=== PATIENT | female | born 1950 | race Caucasian/White ===

== ENCOUNTER 2016-12-04 18:59 | Observation (INO) | payer OTHER, MEDICAID ==
[2016-12-04] MEDS ORDERED: NS 1000 ML 1,000 ML IV ONE (19:28)
[2016-12-04] MEDS ORDERED: ZOFRAN INJ 4 MG VIAL IVP ONE (19:30)
[2016-12-04] MEDS ORDERED: NS 1000 ML 1,000 ML ONE (19:31)
--- NOTE | 2016-12-04 19:35 | DR.GENAD ---
HPI - PCP Primary Care Physician: CALDERON - Complaint/Symptoms Chief Complaint Doctors Comments: Patient complains of vomited black secretions x2 at home with generalized weakness, tired in bed all day. states she has a history of GI bleed and was getting transfusions every 3-4 months. states she was scoped by Dr. Wolff and told she have a AVM like area. she denies tobacco or alcohol usage. States the pain is 8 of 10. She denies wendy or hematuria today. She has had a productive cough for a few days. States she had episode in which she could not stop shaking and her daughter had to cover her with four blankets. Chief Complaint:: VOMITING WEAK - Nurses notes reviewed Nurses Notes Review: Yes - Source History Provided: Patient - Mode of Arrival Mode of Arrival: Ambulatory - Timing Onset of Chief Complaint: 12/04/16 Came on: Gradually - Duration Duration: Intermittent How lon Duration: Days - Location Location: vomiting with abdominal pain - Severity Severity: Moderate - Modifying Factors Worsens:: nothing Improves:: nothing PMH - PMH Past Medical History: Yes Past Medical History: Anemia, Anxiety, Depression, GERD, Hypertension, Kidney Stones, PUD Past Medical History Comment: HIATAL HERNIA Past Surgical History: Yes Surgical History: Cholecystectomy, Hysterectomy, Ortho Surgery Past Surgical History Comment: LUMPECTOMY, SPURS REMOVED FROM FEET - Family History History of Family Medical Conditions: Yes Family Medical History: Cancer, Hypertension - Social History Does patient currently use any type of tobacco product: No Have you used tobacco products in the last 12 months: No Type of Tobacco Use: None Does any household member use tobacco: No Alcohol Use: None Do you use any recreational Drugs:: No Lives With: Family Lives Where: Home - infectious screening In the last 2 months have you had wt loss of >10#?: NO Have you had fever, night sweats or hemotysis?: No Have you traveled outside the country in the last 6 months?: No Isolation: Standard ROS - Review of Systems Constitutional: No Symptoms Reported, Fever, Malaise, Weakness, Loss of Appetite. negative: See HPI, Chills, Diaphoresis, Irritable, Fatigue, Other Eyes: No Symptoms Reported, Blurred Vision, Discharge ENTM: No Symptoms Reported. negative: See HPI, Ear Pain, Ear Discharge, Pulling on Ears, Hearing Loss, Nose Pain, Nose Discharge, Epistaxis, Nose Congestion, Mouth Pain, Mouth Swelling, Loose Teeth, Drooling, Throat Pain, Throat Swelling, Ear Foreign Body Respiratoy: Non-Productive Cough, Dry Cough Cardiovascular: No Symptoms Reported. negative: See HPI, Chest Pain, Edema, Palpitations, Syncope, Cyanosis, Skin Mottling, Other Gastrointestinal/Abdominal: No Symptoms Reported, Abdominal Pain, Nausea. negative: See HPI, Constipation, Diarrhea, Vomiting, Food Intolerance, Other Genitourinary: No Symptoms Reported. negative: See HPI, Discharge, Dysuria, Frequency, Hematuria, Pain, Bleeding, Other Neurological: No Symptoms Reported, Weakness. negative: See HPI, Anxiety, Depressed, Emotional Problems, Headache, Numbness, Paresthesia, Pre-existing Deficit, Seizure, Tingling, Tremors, Dizziness, Problems Walking, Speech Problem , Other Musculoskeletal: No Symptoms Reported Integumentary: No Symptoms Reported Hematologic/Lymphatic: No Symptoms Reported Endocrine: No Symptoms Reported Psychiatric: No Symptoms Reported PE - Vital Signs Vitals: Temperature 99.3 F Pulse Rate 109 Respiratory Rate 16 Blood Pressure [Right Arm] 145/61 Blood Pressure [Right Radial 147/79 Artery] Blood Pressure [Left Arm] 137/67 Blood Pressure [Standing] 128/59 Blood Pressure [Lying] 141/71 Blood Pressure 140/65 O2 Sat by Pulse Oximetry 97 - General Limitations: No Limitations General Appearance: Alert, In Distress (mild) - Head Head Exam: Normal Inspection, Atraumatic, Normocephalic - Eyes Eye exam: Normal Appearance, PERRL, EOMI. negative: Scleral Icterus, Conjunctival Injection, Nystagmus, Miosis, Mydrasis, Periorbital Swelling, Periorbital Tenderness, Other - ENT ENT Exam: Normal Exam External Ear Exam: Normal External Inspection TM/Canal Exam: Bilateral Normal Nose Exam: Normal Nose Exam, Sinus Tenderness Mouth Exam: Normal Inspection Throat Exam: Normal Inspection. negative: Tonsillar Erythema, Tonsillomegaly, Tonsillar Exudate, R Peritonsillar Mass, L Peritonsillar Mass, Muffled Voice, Other - Neck Neck Exam: Normal Inspection, Full ROM, Trachea Midline. negative: Tenderness, Meningismus, Lymphadenopathy, Thyromegaly, Other - Chest Chest Inspection: Normal Inspection, Symmetric Chest Wall Rise. negative: Tenderness, Rash, Abscess, Other - Respiratory Respiratory Exam: Normal Lung Sounds Bilat Respiratory Exam: Bilateral Clear to Auscultation - Cardiovascular Cardiovascular Exam: Regular Rate, Normal Rhythm, Normal Heart Sounds - Abdominal Exam Abdominal Exam: Normal Inspection, Normal Bowel Sounds, Soft, Tenderness ( epigastric tenderss) Abdominal Tenderness: Epigastrium, Moderate - Extremities Extremities Exam: Normal Inspection, Full ROM, Normal Capillary Refill. negative: Tenderness, Edema, Joint Swelling, Calf Tenderness, Other - Back Back Exam: Normal Inspection, Full ROM. negative: Tenderness, (R) CVA Tenderness, (L) CVA Tenderness, Muscle Spasm, Paraspinal Tenderness, Vertebral Tenderness, Rashes, (R) Sciatic Notch Tenderness, (L) Sciatic Notch Tendern, (R ) Straight Leg Raise, (L) Straight Leg Raise, Other - Neurologic Neurological Exam: Alert, Oriented X3, CN II-XII Intact, Normal Gait, Reflexes Normal - Psychiatric Psychiatric Exam: Normal Affect, Normal Mood. negative: Depressed, Agitated, Anxious, Flat Affect, Manic, Homicidal Ideation, Suicidal Ideation, Other - Skin Skin Exam: Warm, Dry, Intact, Normal Color. negative: Rash, Cyanosis, Diaphoresis, Erythema, Pallor, Mottled, Other Course - Reevaluation 1st: Improved - Consultation Called: 22:22 Call Returned: 22:22 (Dr. Villalobos to admit) - Education/Counseling Education/Counseling: Patient, Family, Counseling Educated On: Treatment, Diagnosis, Prognosis, Needs for Follow Up ROR - Labs Reviewed Laboratory Results Reviewed?: Yes (all labs and x-ray results reviewed and discussed with patient) Result Diagrams: 12/04/16 19:40 12/04/16 19:40 Laboratory: WBC 13.8 X10^3/uL (3.6-10.0) H 12/04/16 19:40 RBC 3.13 X10^6/uL (3.5-5.4) L 12/04/16 19:40 Hgb 9.7 g/dL (12.0-16.0) L 12/04/16 19:40 Hct 29.0 % (36.0-47.0) L 12/04/16 19:40 MCV 92.6 fL (80.0-100.0) 12/04/16 19:40 MCH 30.9 pg (27.0-34.0) 12/04/16 19:40 MCHC 33.4 g/dL (33.0-35.0) 12/04/16 19:40 RDW 13.3 % (11.6-16.5) 12/04/16 19:40 Plt Count 182 X10^3/uL (150.0-450.0) 12/04/16 19:40 MPV 9.8 fL (7.4-11.0) 12/04/16 19:40 Neut % 86.5 % (42.0-75.0) H 12/04/16 19:40 Lymph % 7.6 % (21.0-51.0) L 12/04/16 19:40 Gray % 5.3 % (0.0-13.0) 12/04/16 19:40 Eos % 0.1 % (0.9-2.9) L 12/04/16 19:40 Baso % 0.5 % (0.2-1.0) 12/04/16 19:40 Neut # 12.0 x10^3/uL (2.2-4.8) H 12/04/16 19:40 Lymph # 1.0 X10^3/uL (1.3-2.9) L 12/04/16 19:40 Gray # 0.7 x10^3/uL (0.3-0.8) 12/04/16 19:40 Eos # 0.0 x10^3/uL (0.0-0.2) 12/04/16 19:40 Baso # 0.1 X10^3/uL (0.0-0.1) 12/04/16 19:40 Absolute Nucleated RBC 0.0 /100WBC 12/04/16 19:40 Sodium 137 mmol/L (136-145) 12/04/16 19:40 Corrected Sodium 137 mmol/L (136-145) 12/04/16 19:40 Potassium 4.3 mmol/L (3.5-5.1) 12/04/16 19:40 Chloride 103 mmol/L (98-107) 12/04/16 19:40 Carbon Dioxide 25.6 mmol/L (21-32) 12/04/16 19:40 BUN 38 mg/dL (7-18) H 12/04/16 19:40 Creatinine 1.45 mg/dL (0.55-1.02) H 12/04/16 19:40 Est GFR (MDRD) Af Amer 46 (>60) L 12/04/16 19:40 Est GFR (MDRD) Non-Af 38 (>60) L 12/04/16 19:40 Glucose 111 mg/dL (65-99) H 12/04/16 19:40 Calcium 8.7 mg/dL (8.5-10.1) 12/04/16 19:40 Corrected Calcium 9.3 mg/dL (8.5-10.1) 12/04/16 19:40 Total Bilirubin 0.40 mg/dL (0.2-1.0) 12/04/16 19:40 AST 41 Units/L (15-37) H 12/04/16 19:40 ALT 41 Units/L (12-78) 12/04/16 19:40 Alkaline Phosphatase 87 Units/L (46-116) 12/04/16 19:40 Total Protein 6.6 g/dL (6.4-8.2) 12/04/16 19:40 Albumin 3.3 g/dL (3.4-5.0) L 12/04/16 19:40 Globulin 3.3 g/dL (2.5-4.5) 12/04/16 19:40 Albumin/Globulin Ratio 1.0 Ratio (1.1-2.1) L 12/04/16 19:40 Amylase 24 Units/L (25-115) L 12/04/16 19:40 Lipase 102 Units/L (73-393) 12/04/16 19:40 HCG, Qual Negative <10 mIU/mL 12/04/16 19:40 Specimen Type Clean catch urine 12/04/16 20:53 Urine Color Yellow (YELLOW) 12/04/16 20:53 Urine Appearance Clear (CLEAR) 12/04/16 20:53 Urine pH 5.0 (5.0 - 8.0) 12/04/16 20:53 Ur Specific Irwin 1.010 (1.000-1.030) 12/04/16 20:53 Urine Protein 1+ (NEGATIVE) 12/04/16 20:53 Urine Glucose (UA) Negative (NEGATIVE) 12/04/16 20:53 Urine Ketones Negative (NEGATIVE) 12/04/16 20:53 Urine Occult Blood 2+ (NEGATIVE) 12/04/16 20:53 Urine Nitrite Negative (NEGATIVE) 12/04/16 20:53 Urine Bilirubin Negative (NEGATIVE) 12/04/16 20:53 Urine Urobilinogen Normal (NORMAL) 12/04/16 20:53 Ur Leukocyte Esterase 3+ (NEGATIVE) 12/04/16 20:53 Urine RBC 01 - 04 /HPF (NEGATIVE) 12/04/16 20:53 Urine WBC 03 - 06 /HPF (NEGATIVE) 12/04/16 20:53 Ur Squamous Epith Cells Many /HPF (NEGATIVE) 12/04/16 20:53 Amorphous Sediment Trace /HPF (NEGATIVE) 12/04/16 20:53 Urine Bacteria 1+ /HPF (NEGATIVE) 12/04/16 20:53 Hyaline Casts Rare /LPF (NEGATIVE) 12/04/16 20:53 Ur Culture Indicated? No/not indicated 12/04/16 20:53 Stool Description Fob tube 12/04/16 20:35 Stl Occult Blood (IFOB) Negative (NEGATIVE) 12/04/16 20:35 H. pylori IgG Antibody Negative (NEGATIVE) 12/04/16 19:40 - XRAY XRAY Interpreted by: Radiologist (CT abdomen: Left lung pneumonia. Large hiatal hernia) - Diagnosis Discharge Problem: Hiatal hernia, Normocytic anemia Pneumonia involving left lung Qualifiers: Pneumonia type: due to unspecified organism Abdominal pain Qualifiers: Abdominal location: generalized Qualified Code(s): R10.84 - Generalized abdominal pain - Discharge Plan Disposition: ADMITTED INPATIENT Condition: Stable - Follow ups/Referrals Follow ups/Referrals: LINDA CALDERON [Primary Care Provider] - 3 days - Instructions
[2016-12-04] MEDS ORDERED: TYLENOL 325 MG TAB PO ONE ×2 (19:44→19:46)
[2016-12-04] MEDS ORDERED: ZOFRAN INJ 4 MG VIAL ONE (19:48)
[2016-12-04 19:49] LABS: BASOPHILS # (AUTO) 0.1 X10^3/uL (0.0-0.1); BASOPHILS % (AUTO) 0.5 % (0.2-1.0); EOSINOPHILS % (AUTO) 0.1 % (0.9-2.9); HEMOGLOBIN 9.7 g/dL (12.0-16.0); LYMPHOCYTES % (AUTO) 7.6 % (21.0-51.0); MEAN CORPUSCULAR HEMOGLOBIN 30.9 pg (27.0-34.0); MEAN CORPUSCULAR HGB CONC 33.4 g/dL (33.0-35.0); MEAN CORPUSCULAR VOLUME 92.6 fL (80.0-100.0); MEAN PLATELET VOLUME 9.8 fL (7.4-11.0); MONOCYTES # (AUTO) 0.7 x10^3/uL (0.3-0.8); MONOCYTES % (AUTO) 5.3 % (0.0-13.0); NEUTROPHILS % (AUTO) 86.5 % (42.0-75.0); PLATELET COUNT 182 X10^3/uL (150.0-450.0); RED BLOOD COUNT 3.13 X10^6/uL (3.5-5.4); RED CELL DISTRIBUTION WIDTH 13.3 % (11.6-16.5); WHITE BLOOD COUNT 13.8 X10^3/uL (3.6-10.0)
[2016-12-04 20:06] LABS: ALBUMIN 3.3 g/dL (3.4-5.0); CALCIUM 8.7 mg/dL (8.5-10.1); CARBON DIOXIDE 25.6 mmol/L (21-32); COR CA(FOR HYPOALB) 9.3 mg/dL (8.5-10.1); CREATININE 1.45 mg/dL (0.55-1.02); TOTAL PROTEIN 6.6 g/dL (6.4-8.2)
[2016-12-04 20:22] LABS: SERUM PREGNANCY TEST, QUAL NEGATIVE <10 mIU/mL
[2016-12-04 21:06] LABS: BILIRUBIN,URINE NEGATIVE (NEGATIVE); BLOOD/HEMOGLOBIN,URINE 2+ (NEGATIVE); GLUCOSE, URINE NEGATIVE (NEGATIVE); KETONES,URINE NEGATIVE (NEGATIVE); LEUKOCYTE ESTERASE ,URINE 3+ (NEGATIVE); NITRITES,URINE NEGATIVE (NEGATIVE); PROTEIN,URINE 1+ (NEGATIVE); UROBILINOGEN,URINE NORMAL (NORMAL)
[2016-12-04 21:15] LABS: AMORPHOUS SEDIMENT,UR TRACE /HPF (NEGATIVE); APPEARANCE,URINE CLEAR (CLEAR); BACTERIA,URINE 1+ /HPF (NEGATIVE); COLOR,URINE YELLOW (YELLOW); SQUAMOUS EPITHELIAL CELL,UR MANY /HPF (NEGATIVE)
[2016-12-04 21:16] LABS: HYALINE CASTS, URINE RARE /LPF (NEGATIVE)
--- NOTE | 2016-12-04 21:23 | CT ---
CT abdomen and pelvis without contrast Indication: Abdominal pain, vomiting, weakness Comparison: 07/17/2016 Technique: CT images of the abdomen and pelvis were obtained without contrast. Automatic exposure co ntrol was utilized. Findings: Chronic T12 compression fracture. Degenerative changes of the lumbar spine with unchanged grade 1 anterolisthesis of L4 on L5. No aggressive osseous lesion identified. There are patchy alveolar opacities of the lingula and visualized left lower lobe. The right lung ba se is clear. There is large hiatal hernia of the stomach, which is otherwise grossly unremarkable. Previous nathaly cystectomy. Within noncontrast limitations, the liver, spleen, duodenum, pancreas, adrenals, and kid neys are unremarkable. No significant bowel thickening or dilatation of the lower GI tract identifie d. The appendix appears normal. The uterus is absent. The urinary bladder and rectum are unremarkabl e. No free fluid or adenopathy identified. Impression: Left lung pneumonia No acute process identified within the abdomen or pelvis. Large hiatal hernia and other findings as above Reported By:
[2016-12-04] MEDS ORDERED: NS 50 ML IV + SPIKE MINIBAG* 50 ML IV ONE (21:31)
[2016-12-04] MEDS ORDERED: ROCEPHIN VIAL 1 GM ONE (21:31)
[2016-12-04] MEDS ORDERED: ROCEPHIN VIAL 1 GM 1 GM in NS 50 ML IV + SPIKE MINIBAG* 50 ML IV ONE (21:32)
[2016-12-04] MEDS ORDERED: TUSSIONEX PENNKINETIC SUSP PO PRN (22:24)
[2016-12-04] MEDS ORDERED: SALINE 3% 15 ML NEB TX NEB ONE (22:30)
[2016-12-04] MEDS ORDERED: NS 1/2 1000 ML IV 1,000 ML IV ONE (22:33)
[2016-12-04] MEDS ORDERED: SALINE 3% 15 ML NEB TX ONE (22:34)
[2016-12-04] MEDS: PEPCID 20 MG IV PREMIX* 20 MG/50 ML BAG IV SCH (22:40)
[2016-12-04] MEDS ORDERED: LEVAQUIN PREMIX IV 750 MG 750 MG/150 ML BAG IV SCH (23:00)
[2016-12-04] MEDS ORDERED: LEVAQUIN PREMIX IV 500 MG 500 MG/100 ML BAG IV SCH (23:00)
[2016-12-04] MEDS: NS 1/2 + KCL 20 MEQ/L 1,000 ML IV SCH (23:46)
[2016-12-05 00:12] VITALS: BMI 33.5
[2016-12-05] MEDS: DUONEB 0.5 MG/3 MG NEB SCH ×6 (00:35→20:40)
[2016-12-05 06:07] LABS: BASOPHILS % (AUTO) 0.5 % (0.2-1.0); EOSINOPHILS # (AUTO) 0.1 x10^3/uL (0.0-0.2); EOSINOPHILS % (AUTO) 0.5 % (0.9-2.9); HEMATOCRIT 24.2 % (36.0-47.0); HEMOGLOBIN 8.2 g/dL (12.0-16.0); LYMPHOCYTES % (AUTO) 10.5 % (21.0-51.0); MEAN CORPUSCULAR HEMOGLOBIN 31.6 pg (27.0-34.0); MEAN CORPUSCULAR HGB CONC 33.9 g/dL (33.0-35.0); MEAN CORPUSCULAR VOLUME 93.1 fL (80.0-100.0); MEAN PLATELET VOLUME 10.8 fL (7.4-11.0); MONOCYTES # (AUTO) 0.6 x10^3/uL (0.3-0.8); NEUTROPHILS # (AUTO) 7.9 x10^3/uL (2.2-4.8); NEUTROPHILS % (AUTO) 82.5 % (42.0-75.0); PLATELET COUNT 144 X10^3/uL (150.0-450.0); RED CELL DISTRIBUTION WIDTH 13.1 % (11.6-16.5); WHITE BLOOD COUNT 9.5 X10^3/uL (3.6-10.0)
[2016-12-05] MEDS ORDERED: TYLENOL 325 MG TAB PO PRN (07:35)
[2016-12-05] MEDS: NEURONTIN TAB 600 MG PO SCH ×2 (08:30→20:53)
[2016-12-05] MEDS: FIORICET TAB PO PRN ×2 (08:30→21:28)
[2016-12-05] MEDS: PEPCID 20 MG IV PREMIX* 20 MG/50 ML BAG IV SCH (08:31)
[2016-12-05] MEDS: ROCEPHIN VIAL 1 GM 1 GM in NS 50 ML IV + SPIKE MINIBAG* 50 ML IV SCH (08:31)
[2016-12-05] MEDS: ROBITUSSIN DM PO SCH ×4 (08:31→20:53)
[2016-12-05] MEDS ORDERED: REQUIP PO SCH ×2 (09:00→21:00)
[2016-12-05] MEDS: NS 1/2 + KCL 20 MEQ/L 1,000 ML IV SCH (12:47)
[2016-12-05] MEDS ORDERED: PHENERGAN TAB 25 MG PO PRN (13:10)
[2016-12-05] MEDS ORDERED: RESTORIL CAP 15 MG PO PRN (13:13)
[2016-12-05] MEDS: PROTONIX TAB 40 MG PO SCH (16:11)
[2016-12-05] MEDS ORDERED: NEURONTIN TAB 600 MG PO SCH (21:00)
[2016-12-06] MEDS: NS 1/2 + KCL 20 MEQ/L 1,000 ML IV SCH ×2 (01:00→14:07)
[2016-12-06] MEDS: DUONEB 0.5 MG/3 MG NEB SCH ×4 (01:31→12:03)
[2016-12-06 06:08] LABS: ALANINE AMINOTRANSFERASE 25 Units/L (12-78); ALBUMIN 2.6 g/dL (3.4-5.0); ALKALINE PHOSPHATASE 90 Units/L (46-116); ASPARTATE AMINO TRANSFERASE 16 Units/L (15-37); BLOOD UREA NITROGEN 19 mg/dL (7-18); CALCIUM 7.9 mg/dL (8.5-10.1); CARBON DIOXIDE 26.1 mmol/L (21-32); CHLORIDE 111 mmol/L (98-107); CREATININE 1.08 mg/dL (0.55-1.02); GLUCOSE 98 mg/dL (65-99); SODIUM 142 mmol/L (136-145); TOTAL PROTEIN 5.7 g/dL (6.4-8.2); eGFR BLACK RACES > 60 (>60); eGFR NON BLACK RACES 54 (>60)
[2016-12-06 06:21] LABS: BASOPHILS % (AUTO) 0.3 % (0.2-1.0); EOSINOPHILS # (AUTO) 0.1 x10^3/uL (0.0-0.2); EOSINOPHILS % (AUTO) 1.7 % (0.9-2.9); HEMATOCRIT 23.5 % (36.0-47.0); HEMOGLOBIN 7.9 g/dL (12.0-16.0); LYMPHOCYTES # (AUTO) 0.7 X10^3/uL (1.3-2.9); MEAN CORPUSCULAR HGB CONC 33.8 g/dL (33.0-35.0); MEAN CORPUSCULAR VOLUME 94.7 fL (80.0-100.0); MEAN PLATELET VOLUME 11.1 fL (7.4-11.0); MONOCYTES # (AUTO) 0.3 x10^3/uL (0.3-0.8); MONOCYTES % (AUTO) 6.4 % (0.0-13.0); NEUTROPHILS # (AUTO) 3.7 x10^3/uL (2.2-4.8); NEUTROPHILS % (AUTO) 76.6 % (42.0-75.0); PLATELET COUNT 127 X10^3/uL (150.0-450.0); RED BLOOD COUNT 2.48 X10^6/uL (3.5-5.4); RED CELL DISTRIBUTION WIDTH 13.5 % (11.6-16.5); WHITE BLOOD COUNT 4.8 X10^3/uL (3.6-10.0)
--- NOTE | 2016-12-06 06:57 | RAD ---
PA and lateral Chest Indication: Cough Comparison: Findings: The trachea is midline. The cardiac silhouette is unremarkable. There are patchy left lower lobe an d retrocardiac opacities are noted. There is blunting of the right costophrenic sulcus which is most consistent with a small pleural effusion. The bony thorax is unremarkable. Moderate size sliding h iatal hernia is present. IMPRESSION: 1. Patchy left lower lobe and retrocardiac airspace opacities consistent with pneumonia. 2.Small right-sided pleural effusion. 3.Moderate size sliding hiatal hernia. Reported By:
[2016-12-06 07:03] LABS: HYPOCHROMASIA SLIGHT; PLATELET MORPHOLOGY COMMENT NORMAL (NORMAL)
[2016-12-06] MEDS: NEURONTIN TAB 600 MG PO SCH (08:21)
[2016-12-06] MEDS: ROCEPHIN VIAL 1 GM 1 GM in NS 50 ML IV + SPIKE MINIBAG* 50 ML IV SCH (08:22)
[2016-12-06] MEDS: PEPCID 20 MG IV PREMIX* 20 MG/50 ML BAG IV SCH (08:22)
[2016-12-06] MEDS: ROBITUSSIN DM PO SCH ×2 (08:22→13:12)
[2016-12-06] MEDS: PROTONIX TAB 40 MG PO SCH (08:22)
[2016-12-06] MEDS: FIORICET TAB PO PRN (10:41)
[2016-12-06 11:33] VITALS: BP 113/57
== END 2016-12-06 15:20 | disposition home or self-care (01) ==
LOC: ER 18:59 → MED/SURG 22:23
PROVIDERS: ADMIT Internal Medicine; ATTEND Obstetrics & Gynecology Obstetrics
DX: J18.8 Other pneumonia, unspecified organism (principal); D64.89 Other specified anemias; R10.84 Generalized abdominal pain; R53.1 Weakness; K44.9 Diaphragmatic hernia without obstruction or gangrene; J90 Pleural effusion, not elsewhere classified; D72.828 Other elevated white blood cell count; R94.4 Abnormal results of kidney function studies
CPT/HCPCS: 36415; 71020; 74176; 80053; 81001; 82150; 82270; 83690; 84703; 85025; 86677; 87040; 93005; 93010; 94640; 94760; 96365; 96374; 96375; 99218; 99284; A4216; A4222; J7030; S0028; G0378; J0696; J1956; J2405; J7620

== ENCOUNTER 2017-02-27 16:46 | Emergency (ER) | payer OTHER, MEDICAID ==
[2017-02-27 16:56] VITALS: BP 145/65; BMI 29.0
--- NOTE | 2017-02-27 17:00 | DR.GENAD ---
HPI - PCP Primary Care Physician: DORIS - HPI Comment HPI Comment: HISTORY GI BLEEDING. DARK STOOL NOTED AT HOME. PATIENT HAVE INCREASING WEAKNESS. RECENT EGD DONE BY GI - Complaint/Symptoms Chief Complaint Doctors Comments: DARK STOOL, WEAK. Chief Complaint:: "I'M WEAK AND FEEL LIKE I'M LOSING BLOOD." Self Treatment fo Chief Complaint: NONE - Nurses notes reviewed Nurses Notes Review: Yes - Source History Provided: Patient - Mode of Arrival Mode of Arrival: Ambulatory - Timing Onset of Chief Complaint: 02/26/17 Came on: Suddenly - Duration Duration: Constant Duration: Days - Severity Severity: Moderate PMH - PMH Past Medical History: Yes Past Medical History: Anemia, Anxiety, Depression, GERD, Hypertension, Kidney Stones, PUD Past Surgical History: Yes Surgical History: Cholecystectomy, Hysterectomy, Ortho Surgery - Family History History of Family Medical Conditions: Yes Family Medical History: Cancer, Hypertension - Social History Does patient currently use any type of tobacco product: No Have you used tobacco products in the last 12 months: No Type of Tobacco Use: None Does any household member use tobacco: No Alcohol Use: None Do you use any recreational Drugs:: No Lives With: Family Lives Where: Home - infectious screening In the last 2 months have you had wt loss of >10#?: NO Have you had fever, night sweats or hemotysis?: No Have you traveled outside the country in the last 6 months?: No ROS - Review of Systems Constitutional: Weakness, Fatigue. negative: Chills, Fever Eyes: No Symptoms Reported. negative: Eye Pain, Discharge ENTM: No Symptoms Reported. negative: Ear Pain, Nose Discharge, Nose Congestion , Throat Pain Respiratoy: No Symptoms Reported, Non-Productive Cough, Short of Breath. negative: Productive Cough, Wheezing, Hemoptysis Cardiovascular: No Symptoms Reported Gastrointestinal/Abdominal: Abdominal Pain. negative: Diarrhea, Nausea, Vomiting Genitourinary: No Symptoms Reported. negative: Dysuria, Frequency, Hematuria Neurological: Headache, Weakness, Dizziness Musculoskeletal: Muscle Pain Integumentary: No Symptoms Reported Hematologic/Lymphatic: No Symptoms Reported Endocrine: No Symptoms Reported All Other Systems: Reviewed and Negative PE - Vital Signs Vitals: Temperature 98.1 F Pulse Rate 88 Respiratory Rate 20 Blood Pressure [Right Arm] 117/61 Blood Pressure [Right Radial 147/79 Artery] Blood Pressure [Left Arm] 113/57 Blood Pressure [Standing] 128/59 Blood Pressure [Lying] 141/71 Blood Pressure 145/65 O2 Sat by Pulse Oximetry 96 - General Limitations: No Limitations General Appearance: Alert - Head Head Exam: Normal Inspection - Eyes Eye exam: Normal Appearance, Other (CONJUNCTIVA SLIGHTLY PALE.) - ENT ENT Exam: Normal External Ear Exam External Ear Exam: Normal External Inspection TM/Canal Exam: Bilateral Normal Nose Exam: Normal Nose Exam Mouth Exam: Normal Inspection Throat Exam: Normal Inspection - Neck Neck Exam: Normal Inspection - Chest Chest Inspection: Symmetric Chest Wall Rise - Respiratory Respiratory Exam: Normal Lung Sounds Bilat Respiratory Exam: Bilateral Clear to Auscultation - Cardiovascular Cardiovascular Exam: Regular Rate - Abdominal Exam Abdominal Exam: Normal Bowel Sounds, Soft, Tenderness Abdominal Tenderness: Epigastrium, Moderate - Extremities Extremities Exam: Normal Inspection - Back Back Exam: Normal Inspection - Neurologic Neurological Exam: Alert, Oriented X3 - Psychiatric Psychiatric Exam: Normal Affect, Normal Mood - Skin Skin Exam: Normal Color MDM - Additional Information Additional Information Obtained From: Family - Differential Diagnosis Differential Diagnosis: GI BLEEDING, PUD, ANEMIA, HEMORHIODS, DIVERTICULITIS Course - Treatment Treatment: SEE ORDERS. - Consultation Consultation Comments: DISCUSS PATIENT WITH DR. GEORGE. HE WILL SEE HER IN THE IN AM. - Education/Counseling Education/Counseling: Patient, Family, Education Educated On: Treatment, Diagnosis, Needs for Follow Up ROR - Labs Reviewed Laboratory Results Reviewed?: Yes Result Diagrams: 02/27/17 17:25 02/27/17 17:25 Laboratory: WBC 6.4 X10^3/uL (3.6-10.0) 02/27/17 17:25 RBC 3.21 X10^6/uL (3.5-5.4) L 02/27/17 17:25 Hgb 8.0 g/dL (12.0-16.0) L 02/27/17 17:25 Hct 25.3 % (36.0-47.0) L 02/27/17 17:25 MCV 78.9 fL (80.0-100.0) L 02/27/17 17:25 MCH 24.8 pg (27.0-34.0) L 02/27/17 17:25 MCHC 31.5 g/dL (33.0-35.0) L 02/27/17 17:25 RDW 16.4 % (11.6-16.5) 02/27/17 17:25 Plt Count 259 X10^3/uL (150.0-450.0) 02/27/17 17:25 Plt Count Comment Adequate (ADEQUATE) 02/27/17 17:25 MPV 9.5 fL (7.4-11.0) 02/27/17 17:25 Neut % 68.7 % (42.0-75.0) 02/27/17 17: Lymph % 21.2 % (21.0-51.0) 02/27/17 17:25 Grayson % 8.3 % (0.0-13.0) 02/27/17 17: Eos % 1.1 % (0.9-2.9) 02/27/17 17: Baso % 0.7 % (0.2-1.0) 02/27/17 17:25 Neut # 4.4 x10^3/uL (2.2-4.8) 02/27/17 17:25 Lymph # 1.4 X10^3/uL (1.3-2.9) 02/27/17 17:25 Grayson # 0.5 x10^3/uL (0.3-0.8) 02/27/17 17:25 Eos # 0.1 x10^3/uL (0.0-0.2) 02/27/17 17:25 Baso # 0.0 X10^3/uL (0.0-0.1) 02/27/17 17: Absolute Nucleated RBC 0.1 /100WBC 02/27/17 17:25 Plt Morphology Comment Normal (NORMAL) 02/27/17 17:25 RBC Morphology Abnormal (NORMAL) A 02/27/17 17:25 Hypochromasia 1+ A 02/27/17 17:25 Microcytosis 1+ A 02/27/17 17:25 INR Target Range - 02/27/17 17:25 INR 1.02 (0.8-1.3) 02/27/17 17:25 PTT 25.7 SECONDS (22.9-36.5) 02/27/17 17:25 PTT Comment - 02/27/17 17:25 Sodium 139 mmol/L (136-145) 02/27/17 17:25 Corrected Sodium TNP 02/27/17 17:25 Potassium 4.9 mmol/L (3.5-5.1) 02/27/17 17:25 Chloride 105 mmol/L (98-107) 02/27/17 17:25 Carbon Dioxide 26.1 mmol/L (21-32) 02/27/17 17:25 BUN 33 mg/dL (7-18) H 02/27/17 17:25 Creatinine 1.03 mg/dL (0.55-1.02) H 02/27/17 17:25 Est GFR (MDRD) Af Amer > 60 (>60) 02/27/17 17:25 Est GFR (MDRD) Non-Af 57 (>60) L 02/27/17 17:25 Glucose 100 mg/dL (65-99) H 02/27/17 17:25 Calcium 9.7 mg/dL (8.5-10.1) 02/27/17 17:25 Corrected Calcium 10.3 mg/dL (8.5-10.1) H 02/27/17 17:25 Iron 18 ug/dL (50-175) L 02/27/17 18:50 Transferrin 221 mg/dL (202-364) 02/27/17 18:50 Ferritin 9 ng/mL (8-252) 02/27/17 18:50 Total Bilirubin 0.10 mg/dL (0.2-1.0) L 02/27/17 17:25 AST 23 Units/L (15-37) 02/27/17 17:25 ALT 38 Units/L (12-78) 02/27/17 17:25 Alkaline Phosphatase 103 Units/L (46-116) 02/27/17 17:25 Total Protein 6.6 g/dL (6.4-8.2) 02/27/17 17:25 Albumin 3.3 g/dL (3.4-5.0) L 02/27/17 17:25 Globulin 3.3 g/dL (2.5-4.5) 02/27/17 17:25 Albumin/Globulin Ratio 1.0 Ratio (1.1-2.1) L 02/27/17 17:25 Amylase 29 Units/L (25-115) 02/27/17 17:25 Lipase 115 Units/L (73-393) 02/27/17 17:25 Vitamin B12 367 pg/mL (193-986) 02/27/17 18:50 Folate 15.8 ng/mL (>8.6) 02/27/17 18:50 Stool Description Fob tube 02/27/17 17:54 Stl Occult Blood (IFOB) Positive (NEGATIVE) A 02/27/17 17:54 - Diagnosis Discharge Problem: Generalized weakness Anemia Qualifiers: Anemia type: iron deficiency Iron deficiency anemia type: chronic blood loss Qualified Code(s): D50.0 - Iron deficiency anemia secondary to blood loss ( chronic) GI bleeding Qualifiers: GI bleed type/associated pathology: melena Qualified Code(s): K92.1 - Melena - Discharge Plan Disposition: 01 HOME, SELF-CARE Condition: Stable - Follow ups/Referrals Follow ups/Referrals: NORM GEORGE [Primary Care Provider] - 02/28/17 - Instructions Instructions: Iron Deficiency Anemia, Adult, Gastrointestinal Bleeding, Easy-to -Read Additional Instructions: RETURN TO EIN IF WORSE.
[2017-02-27] MEDS ORDERED: NS 1000 ML 1,000 ML ONE (17:07)
[2017-02-27 17:49] LABS: BASOPHILS % (AUTO) 0.7 % (0.2-1.0); EOSINOPHILS # (AUTO) 0.1 x10^3/uL (0.0-0.2); EOSINOPHILS % (AUTO) 1.1 % (0.9-2.9); HEMATOCRIT 25.3 % (36.0-47.0); LYMPHOCYTES # (AUTO) 1.4 X10^3/uL (1.3-2.9); LYMPHOCYTES % (AUTO) 21.2 % (21.0-51.0); MEAN CORPUSCULAR HEMOGLOBIN 24.8 pg (27.0-34.0); MEAN CORPUSCULAR HGB CONC 31.5 g/dL (33.0-35.0); MEAN CORPUSCULAR VOLUME 78.9 fL (80.0-100.0); MEAN PLATELET VOLUME 9.5 fL (7.4-11.0); MONOCYTES # (AUTO) 0.5 x10^3/uL (0.3-0.8); MONOCYTES % (AUTO) 8.3 % (0.0-13.0); NEUTROPHILS # (AUTO) 4.4 x10^3/uL (2.2-4.8); NEUTROPHILS % (AUTO) 68.7 % (42.0-75.0); PLATELET COUNT 259 X10^3/uL (150.0-450.0); RED BLOOD COUNT 3.21 X10^6/uL (3.5-5.4); RED CELL DISTRIBUTION WIDTH 16.4 % (11.6-16.5); WHITE BLOOD COUNT 6.4 X10^3/uL (3.6-10.0)
[2017-02-27 17:57] LABS: ALANINE AMINOTRANSFERASE 38 Units/L (12-78); ALBUMIN 3.3 g/dL (3.4-5.0); ALKALINE PHOSPHATASE 103 Units/L (46-116); AMYLASE 29 Units/L (25-115); ASPARTATE AMINO TRANSFERASE 23 Units/L (15-37); BLOOD UREA NITROGEN 33 mg/dL (7-18); CALCIUM 9.7 mg/dL (8.5-10.1); CARBON DIOXIDE 26.1 mmol/L (21-32); CHLORIDE 105 mmol/L (98-107); COR CA(FOR HYPOALB) 10.3 mg/dL (8.5-10.1); CREATININE 1.03 mg/dL (0.55-1.02); LIPASE 115 Units/L (73-393); SODIUM 139 mmol/L (136-145); TOTAL PROTEIN 6.6 g/dL (6.4-8.2); eGFR BLACK RACES > 60 (>60); eGFR NON BLACK RACES 57 (>60)
[2017-02-27 17:59] LABS: HYPOCHROMASIA 1+; MICROCYTOSIS 1+; PLATELET MORPHOLOGY COMMENT NORMAL (NORMAL)
[2017-02-27] MEDS ORDERED: NS 1000 ML 1,000 ML IV SCH (18:00)
[2017-02-27] MEDS ORDERED: PROTONIX INJ 40 MG VIAL IVP ONE (18:27)
[2017-02-27] MEDS ORDERED: PROTONIX INJ 40 MG VIAL ONE (18:27)
[2017-02-27] MEDS ORDERED: ZOFRAN INJ 4 MG VIAL IVP ONE (18:27)
[2017-02-27] MEDS ORDERED: ZOFRAN INJ 4 MG VIAL ONE (18:27)
== END 2017-02-27 19:30 | disposition home or self-care (01) ==
LOC: ER 16:46
DX: R53.1 Weakness (principal); D50.0 Iron deficiency anemia secondary to blood loss (chronic); K92.1 Melena
CPT/HCPCS: 36415; 80053; 82150; 82270; 82607; 82728; 82746; 83540; 83690; 84466; 85025; 85610; 85730; 96365; 96367; 96374; 96375; 99283; A4222; C9113; J2405

== ENCOUNTER 2017-02-28 10:42 | Inpatient (IN) | payer OTHER, MEDICAID ==
[2017-02-28 12:10] VITALS: BMI 31.8
[2017-02-28] MEDS ORDERED: PREVNAR 13 IM ONE (12:10)
[2017-02-28] MEDS ORDERED: NS 500 ML IV 500 ML IV ONE (12:56)
[2017-02-28] MEDS ORDERED: LASIX IVP ONE (13:13)
[2017-02-28] MEDS ORDERED: PHENERGAN TAB 25 MG PO PRN (13:20)
--- NOTE | 2017-02-28 13:23 | DR.H&P ---
H&P - History & Physical for Day of: H&P Date: 02/28/17 - Chief Complaint Chief Complaint: weakness, shortness of breath, "very tired" - Allergies Allergies/Adverse Reactions: Allergies Allergy/AdvReac Type Severity Reaction Status Date / Time No Known Drug Allergies Allergy Verified 12/04/16 19:31 - History of Present Illness History of Present Illness: patient is a 66-year-old white female who was a direct admit from Dr. Villalobos's office after presenting with complaints of severe weakness and fatigue. Patient was seated 1 day ago in the emergency room and was diagnosed with anemia. Patient's hemoglobin had dropped over 1-1/ 2 points from last week. Patient also reports lower abdominal discomfort and loose stool with mucus. Patient denies any rd red blood. Patient has a chronic history of anemia and has received transfusion before. patient also has a past medical history of high blood pressure and fibromyalgia and multi-joint osteoarthritis. Patient is on Cytotec for stomach erosions. Plan to admit, type and cross and transfuse 2 units packed red blood cells, obtain anemia panel , CT abdomen and pelvis and stool studies. We will resume patient's home medications and repeat a.m. labs. - Past Medical History Past Medical History: Anemia, Anxiety, Depression, GERD, Hypertension, Kidney Stones, PUD Additional Medical History: GI Bleed - Past Surgical History Surgical History: Cholecystectomy, Hysterectomy, Ortho Surgery, Other Additional Surgical History: Lumpectomy from breasts, spurs removed from heels. - Family History Family Medical History: Cancer, Hypertension - Social History Does patient currently use any type of tobacco product: No Have you used tobacco products in the last 12 months: No Type of Tobacco Use: None Does any household member use tobacco: No Alcohol Use: None Drug Use: Prescription Drugs - Medications Home Medications: Alprazolam [Alprazolam] 1 tab PO DAILY PRN 02/28/17 [History Confirmed 02/28/17] Amlodipine Besylate [NORVASC 5 MG *] 1 tab PO DAILY 02/28/17 [History Confirmed 02/28/17] [id number] [FIORICET 50/325/40 MG *] 1 tab PO Q6H PRN 02/28/17 [ History Confirmed 02/28/17] Fluoxetine HCl [FLUOXETINE 20 MG *] 2 tab PO DAILY 02/28/17 [History Confirmed 02/28/17] Gabapentin [NEURONTIN TAB 600 MG *] 1 tab PO BID 02/28/17 [History Confirmed ] Hydrochlorothiazide [HYDROCHLOROTHIAZIDE 25 MG TAB *] 1 tab PO DAILY 02/28/17 [ History Confirmed 02/28/17] Lisinopril [Lisinopril] 1 tab PO DAILY 02/28/17 [History Confirmed 02/28/17] Misoprostol [Misoprostol] 1 tab PO TID 02/28/17 [History Confirmed 02/28/17] Pantoprazole Sodium 40 mg [PROTONIX 40 MG *] 1 tab PO DAILY 02/28/17 [History Confirmed 02/28/17] Promethazine HCl 1 tab PO Q4H PRN 02/28/17 [History Confirmed 02/28/17] Ropinirole HCl [Requip] 1 tab PO BID 02/28/17 [History Confirmed 02/28/17] Temazepam 1 cap PO HS 02/28/17 [History Confirmed 02/28/17] - Review of Systems Constitutional: Weakness, Malaise Eyes: No Symptoms Reported ENT: No Symptoms Reported Respiratory: Shortness of Breath Cardiovascular: Palpitations Gastrointestinal: Nausea, Abdominal Pain, Diarrhea Genitourinary: No Symptoms Reported Musculoskeletal: Back Pain, Leg Pain Skin: No Symptoms Reported Neurological: Weakness - Physical Exam Vital Signs: Temperature 97.6 F Pulse Rate [Left Radial] 93 Respiratory Rate 20 Blood Pressure [Right Arm] 139/64 Blood Pressure [Right Radial 147/79 Artery] Blood Pressure [Left Arm] 113/57 Blood Pressure [Standing] 128/59 Blood Pressure [Lying] 141/71 Blood Pressure 145/65 O2 Sat by Pulse Oximetry 98 Oriented: Normal Eyes: Normal Ear: Normal Nose: Normal Throat: Normal Respiratory: RLL Diminished, LLL Diminished Cardiovascular: Tachycardia : Normal Auscultation: Bowel Sounds: Normal Palpation: Normal Tenderness: Epigastric Skin: Other (pallor) Musculoskeletal: Right, Left, Hip, Knee, Back:Thoracic, Back:Lumbar Psychiatric: Depression Speech Pattern: Clear, Appropriate - Assessment/Plan (1) Abdominal pain Qualifiers: Abdominal location: generalized Qualified Code(s): R10.84 - Generalized abdominal pain Status: Acute Plan: Plan to admit, type and cross and transfuse 2 units packed red blood cells , obtain anemia panel, CT abdomen and pelvis and stool studies. We will resume patient's home medications and repeat a.m. labs. EKG AND CXR ON ADMISSION (2) Anemia Qualifiers: Anemia type: iron deficiency Iron deficiency anemia type: chronic blood loss Qualified Code(s): D50.0 - Iron deficiency anemia secondary to blood loss (chronic) Status: Acute (3) Dehydration, mild Status: Acute (4) GI bleed Qualifiers: GI bleed type/associated pathology: melena Qualified Code(s): K92.1 - Melena Status: Acute (5) Anxiety Status: Chronic (6) Depression Status: Chronic (7) GERD (gastroesophageal reflux disease) Qualifiers: Esophagitis presence: esophagitis presence not specified Qualified Code(s) : K21.9 - Gastro-esophageal reflux disease without esophagitis Status: Chronic (8) Hypertension Status: Chronic
[2017-02-28 13:41] LABS: BASOPHILS # (AUTO) 0.1 X10^3/uL (0.0-0.1); EOSINOPHILS # (AUTO) 0.1 x10^3/uL (0.0-0.2); EOSINOPHILS % (AUTO) 1.2 % (0.9-2.9); HEMATOCRIT 22.7 % (36.0-47.0); HEMOGLOBIN 7.2 g/dL (12.0-16.0); LYMPHOCYTES # (AUTO) 0.8 X10^3/uL (1.3-2.9); LYMPHOCYTES % (AUTO) 15.8 % (21.0-51.0); MEAN CORPUSCULAR HEMOGLOBIN 25.1 pg (27.0-34.0); MEAN CORPUSCULAR HGB CONC 31.9 g/dL (33.0-35.0); MEAN CORPUSCULAR VOLUME 78.6 fL (80.0-100.0); MEAN PLATELET VOLUME 9.5 fL (7.4-11.0); MONOCYTES # (AUTO) 0.4 x10^3/uL (0.3-0.8); MONOCYTES % (AUTO) 7.9 % (0.0-13.0); NEUTROPHILS % (AUTO) 74.1 % (42.0-75.0); PLATELET COUNT 252 X10^3/uL (150.0-450.0); RED BLOOD COUNT 2.89 X10^6/uL (3.5-5.4); RED CELL DISTRIBUTION WIDTH 16.4 % (11.6-16.5); WHITE BLOOD COUNT 5.3 X10^3/uL (3.6-10.0)
[2017-02-28] MEDS: NS 1000 ML 1,000 ML IV SCH (13:43)
[2017-02-28] MEDS: PROTONIX INJ 40 MG VIAL IVP SCH ×2 (13:43→21:03)
[2017-02-28 13:45] LABS: ALANINE AMINOTRANSFERASE 34 Units/L (12-78); ALBUMIN 3.3 g/dL (3.4-5.0); ALKALINE PHOSPHATASE 97 Units/L (46-116); ASPARTATE AMINO TRANSFERASE 19 Units/L (15-37); BLOOD UREA NITROGEN 29 mg/dL (7-18); CALCIUM 8.7 mg/dL (8.5-10.1); CARBON DIOXIDE 30.6 mmol/L (21-32); CHLORIDE 105 mmol/L (98-107); COR CA(FOR HYPOALB) 9.3 mg/dL (8.5-10.1); CREATININE 1.07 mg/dL (0.55-1.02); MAGNESIUM 1.7 mg/dL (1.7-2.9); SODIUM 140 mmol/L (136-145); TOTAL PROTEIN 6.5 g/dL (6.4-8.2); eGFR BLACK RACES > 60 (>60); eGFR NON BLACK RACES 54 (>60)
--- NOTE | 2017-02-28 13:51 | RAD ---
HISTORY: Weakness. Anemia. Dyspnea on exertion. Study: Single-view chest. Comparison: December 06, 2016 Findings: The trachea is midline. The cardiac silhouette is within normal limits and grossly unchanged. The l ungs are clear without focal infiltrate or effusion. The bony thorax is unremarkable. IMPRESSION: No acute cardiopulmonary disease. Reported By:
[2017-02-28] MEDS: CYTOTEC PO SCH ×2 (13:52→21:04)
[2017-02-28 14:05] LABS: HYPOCHROMASIA 1+; MICROCYTOSIS 1+; PLATELET MORPHOLOGY COMMENT NORMAL (NORMAL)
[2017-02-28 14:06] LABS: POIKILOCYTOSIS SLIGHT
[2017-02-28 14:11] LABS: IRON 10 ug/dL (50-175); TRANSFERRIN 230 mg/dL (202-364)
[2017-02-28] MEDS ORDERED: NS 100 ML IV 100 ML IV ONE (14:35)
[2017-02-28] MEDS: NORCO 10/325 TAB PO PRN ×2 (14:40→21:02)
[2017-02-28] MEDS ORDERED: NS 250 ML IV 250 ML IV ONE (14:59)
[2017-02-28 15:40] LABS: BILIRUBIN,URINE NEGATIVE (NEGATIVE); BLOOD/HEMOGLOBIN,URINE NEGATIVE (NEGATIVE); GLUCOSE, URINE NEGATIVE (NEGATIVE); KETONES,URINE NEGATIVE (NEGATIVE); LEUKOCYTE ESTERASE ,URINE 2+ (NEGATIVE); NITRITES,URINE NEGATIVE (NEGATIVE); PROTEIN,URINE NEGATIVE (NEGATIVE); UROBILINOGEN,URINE NORMAL (NORMAL)
[2017-02-28 15:51] LABS: APPEARANCE,URINE CLEAR (CLEAR); BACTERIA,URINE 1+ /HPF (NEGATIVE); COLOR,URINE YELLOW (YELLOW); RBC,URINE NONE SEEN /HPF (NEGATIVE); SQUAMOUS EPITHELIAL CELL,UR MODERATE /HPF (NEGATIVE)
[2017-02-28] MEDS ORDERED: LASIX ONE (17:05)
--- NOTE | 2017-02-28 17:19 | CT ---
HISTORY: Diarrhea, lower abdominal pain, anemia Study: CT abdomen and pelvis with contrast Comparison: 12/04/2016 Technique: Multiple axial images of the abdomen and pelvis were obtained with IV contrast. Oral contrast was ad ministered. Dose reduction techniques including Automated Exposure Control (AEC) and adjustment of mA and kV were utilized. Findings: There is a large hiatal hernia with partial intrathoracic stomach again seen in the lower chest. The lung bases are clear. The liver, spleen, pancreas, kidneys, and adrenal glands are unremarkable in t heir CT appearance. The gallbladder is removed. No renal calculi or hydronephrosis. No free intraperitoneal air. No evidence of intestinal obstruction or inflammation. Oral contrast cristina ches the transverse colon. The appendix is normal. No free fluid identified. There is a stable chronic compression fracture of T12. The vascular structures are within normal limi ts for age. No pathologically enlarged lymph nodes are identified. Normal urinary bladder. The uterus is removed. IMPRESSION: 1. No acute abnormality identified. 2. Stable large hiatal hernia with partial intrathoracic stomach. 3. Additional chronic findings as described. Reported By:
[2017-02-28] MEDS ORDERED: PHARMACY CONSULT - DOSE _____ XX SCH (18:00)
[2017-02-28] MEDS ORDERED: PATIENT'S HOME MEDICATION (Ropinirole Hcl [Requip] 1 TAB) PO SCH (21:00)
[2017-02-28] MEDS: NEURONTIN TAB 600 MG PO SCH (21:01)
[2017-02-28] MEDS: XANAX PO PRN (21:02)
[2017-02-28] MEDS: REQUIP PO SCH (21:03)
[2017-02-28] MEDS: RESTORIL CAP 30 MG PO SCH (21:04)
[2017-03-01] MEDS: NS 1000 ML 1,000 ML IV SCH ×2 (05:18→17:22)
[2017-03-01] MEDS: CYTOTEC PO SCH ×3 (05:18→21:00)
[2017-03-01 05:40] LABS: ALANINE AMINOTRANSFERASE 31 Units/L (12-78); ALKALINE PHOSPHATASE 114 Units/L (46-116); ASPARTATE AMINO TRANSFERASE 22 Units/L (15-37); BLOOD UREA NITROGEN 24 mg/dL (7-18); CALCIUM 8.3 mg/dL (8.5-10.1); CARBON DIOXIDE 30.1 mmol/L (21-32); CHLORIDE 105 mmol/L (98-107); COR CA(FOR HYPOALB) 9.1 mg/dL (8.5-10.1); CREATININE 1.11 mg/dL (0.55-1.02); SODIUM 141 mmol/L (136-145); TOTAL PROTEIN 6.1 g/dL (6.4-8.2); eGFR BLACK RACES > 60 (>60); eGFR NON BLACK RACES 52 (>60)
[2017-03-01 06:02] LABS: BASOPHILS # (AUTO) 0.1 X10^3/uL (0.0-0.1); BASOPHILS % (AUTO) 1.4 % (0.2-1.0); EOSINOPHILS # (AUTO) 0.1 x10^3/uL (0.0-0.2); EOSINOPHILS % (AUTO) 2.4 % (0.9-2.9); HEMATOCRIT 28.9 % (36.0-47.0); HEMOGLOBIN 9.4 g/dL (12.0-16.0); LYMPHOCYTES # (AUTO) 0.8 X10^3/uL (1.3-2.9); LYMPHOCYTES % (AUTO) 12.8 % (21.0-51.0); MEAN CORPUSCULAR HEMOGLOBIN 26.2 pg (27.0-34.0); MEAN CORPUSCULAR HGB CONC 32.5 g/dL (33.0-35.0); MEAN CORPUSCULAR VOLUME 80.6 fL (80.0-100.0); MEAN PLATELET VOLUME 10.5 fL (7.4-11.0); MONOCYTES # (AUTO) 0.6 x10^3/uL (0.3-0.8); MONOCYTES % (AUTO) 9.9 % (0.0-13.0); NEUTROPHILS # (AUTO) 4.3 x10^3/uL (2.2-4.8); NEUTROPHILS % (AUTO) 73.5 % (42.0-75.0); PLATELET COUNT 222 X10^3/uL (150.0-450.0); RED BLOOD COUNT 3.58 X10^6/uL (3.5-5.4); WHITE BLOOD COUNT 5.9 X10^3/uL (3.6-10.0)
[2017-03-01] MEDS ORDERED: DEXFERRUM or INFED 25 MG in NS 100 ML IV 100 ML IV ONE (08:00)
[2017-03-01] MEDS: PROTONIX INJ 40 MG VIAL IVP SCH ×2 (08:56→20:25)
[2017-03-01] MEDS: REQUIP PO SCH (08:56)
[2017-03-01] MEDS: HYDROCHLOROTHIAZIDE 25 MG TAB PO SCH (08:57)
[2017-03-01] MEDS: ZESTRIL TAB 40 MG PO SCH (08:57)
[2017-03-01] MEDS: NEURONTIN TAB 600 MG PO SCH ×2 (08:57→20:25)
[2017-03-01] MEDS: PROzac PO SCH (08:57)
[2017-03-01] MEDS: NORVASC TAB 5 MG PO SCH (08:57)
[2017-03-01] MEDS ORDERED: DEXFERRUM or INFED 1,000 MG in NS 500 ML IV 500 ML IV ONE (09:00)
[2017-03-01] MEDS: CARAFATE PO SCH ×3 (11:43→20:27)
[2017-03-01] MEDS: NORCO 10/325 TAB PO PRN ×2 (12:29→20:26)
[2017-03-01] MEDS: RESTORIL CAP 30 MG PO SCH (20:27)
[2017-03-01] MEDS: SINEMET (PLAIN) 25/100 MG PO SCH (20:37)
[2017-03-01] MEDS: XANAX PO PRN (20:37)
[2017-03-02] MEDS: CYTOTEC PO SCH ×3 (05:27→22:07)
[2017-03-02] MEDS: CARAFATE PO SCH ×4 (05:30→20:42)
[2017-03-02 05:38] LABS: ALBUMIN 2.7 g/dL (3.4-5.0); ALKALINE PHOSPHATASE 117 Units/L (46-116); BLOOD UREA NITROGEN 15 mg/dL (7-18); CALCIUM 8.1 mg/dL (8.5-10.1); CARBON DIOXIDE 29.4 mmol/L (21-32); CHLORIDE 108 mmol/L (98-107); COR CA(FOR HYPOALB) 9.1 mg/dL (8.5-10.1); CREATININE 0.95 mg/dL (0.55-1.02); SODIUM 143 mmol/L (136-145); TOTAL PROTEIN 5.6 g/dL (6.4-8.2); eGFR BLACK RACES > 60 (>60); eGFR NON BLACK RACES > 60 (>60)
[2017-03-02 06:07] LABS: ALANINE AMINOTRANSFERASE 21 Units/L (12-78); ASPARTATE AMINO TRANSFERASE 28 Units/L (15-37)
[2017-03-02 06:16] LABS: BASOPHILS % (AUTO) 1.3 % (0.2-1.0); EOSINOPHILS # (AUTO) 0.1 x10^3/uL (0.0-0.2); EOSINOPHILS % (AUTO) 3.7 % (0.9-2.9); HEMATOCRIT 26.1 % (36.0-47.0); HEMOGLOBIN 8.6 g/dL (12.0-16.0); LYMPHOCYTES % (AUTO) 28.6 % (21.0-51.0); MEAN CORPUSCULAR HEMOGLOBIN 26.6 pg (27.0-34.0); MEAN CORPUSCULAR HGB CONC 32.9 g/dL (33.0-35.0); MEAN CORPUSCULAR VOLUME 80.7 fL (80.0-100.0); MEAN PLATELET VOLUME 10.3 fL (7.4-11.0); MONOCYTES # (AUTO) 0.5 x10^3/uL (0.3-0.8); NEUTROPHILS # (AUTO) 1.9 x10^3/uL (2.2-4.8); NEUTROPHILS % (AUTO) 52.4 % (42.0-75.0); PLATELET COUNT 211 X10^3/uL (150.0-450.0); RED BLOOD COUNT 3.23 X10^6/uL (3.5-5.4); RED CELL DISTRIBUTION WIDTH 17.2 % (11.6-16.5); WHITE BLOOD COUNT 3.6 X10^3/uL (3.6-10.0)
[2017-03-02] MEDS: NS 1000 ML 1,000 ML IV SCH ×2 (07:23→22:08)
[2017-03-02] MEDS: HYDROCHLOROTHIAZIDE 25 MG TAB PO SCH (08:35)
[2017-03-02] MEDS: NEURONTIN TAB 600 MG PO SCH ×2 (08:35→20:43)
[2017-03-02] MEDS: PROTONIX INJ 40 MG VIAL IVP SCH ×2 (08:36→20:44)
[2017-03-02] MEDS: NORVASC TAB 5 MG PO SCH (08:36)
[2017-03-02] MEDS: SINEMET (PLAIN) 25/100 MG PO SCH ×2 (08:36→20:46)
[2017-03-02] MEDS: ZESTRIL TAB 40 MG PO SCH (08:36)
[2017-03-02] MEDS: PROzac PO SCH (08:36)
[2017-03-02] MEDS: NORCO 10/325 TAB PO PRN (11:26)
[2017-03-02 15:05] LABS: BASOPHILS % (AUTO) 1.3 % (0.2-1.0); EOSINOPHILS # (AUTO) 0.1 x10^3/uL (0.0-0.2); EOSINOPHILS % (AUTO) 2.8 % (0.9-2.9); LYMPHOCYTES # (AUTO) 0.9 X10^3/uL (1.3-2.9); LYMPHOCYTES % (AUTO) 23.6 % (21.0-51.0); MEAN CORPUSCULAR HEMOGLOBIN 26.2 pg (27.0-34.0); MEAN CORPUSCULAR HGB CONC 32.2 g/dL (33.0-35.0); MEAN CORPUSCULAR VOLUME 81.3 fL (80.0-100.0); MEAN PLATELET VOLUME 9.3 fL (7.4-11.0); MONOCYTES # (AUTO) 0.5 x10^3/uL (0.3-0.8); MONOCYTES % (AUTO) 13.1 % (0.0-13.0); NEUTROPHILS # (AUTO) 2.2 x10^3/uL (2.2-4.8); NEUTROPHILS % (AUTO) 59.2 % (42.0-75.0); PLATELET COUNT 223 X10^3/uL (150.0-450.0); RED BLOOD COUNT 3.44 X10^6/uL (3.5-5.4); RED CELL DISTRIBUTION WIDTH 16.9 % (11.6-16.5); WHITE BLOOD COUNT 3.7 X10^3/uL (3.6-10.0)
[2017-03-02] MEDS: KLONOPIN TAB 0.5 MG PO PRN (20:43)
[2017-03-02] MEDS: FERROUS SULFATE PO SCH (20:43)
[2017-03-02] MEDS: RESTORIL CAP 30 MG PO SCH (20:43)
[2017-03-03] MEDS: NORCO 10/325 TAB PO PRN ×4 (00:05→20:02)
[2017-03-03 05:31] LABS: BASOPHILS % (AUTO) 1.1 % (0.2-1.0); EOSINOPHILS # (AUTO) 0.2 x10^3/uL (0.0-0.2); EOSINOPHILS % (AUTO) 4.1 % (0.9-2.9); HEMATOCRIT 27.8 % (36.0-47.0); HEMOGLOBIN 9.1 g/dL (12.0-16.0); LYMPHOCYTES # (AUTO) 1.1 X10^3/uL (1.3-2.9); LYMPHOCYTES % (AUTO) 25.3 % (21.0-51.0); MEAN CORPUSCULAR HEMOGLOBIN 26.6 pg (27.0-34.0); MEAN CORPUSCULAR HGB CONC 32.7 g/dL (33.0-35.0); MEAN CORPUSCULAR VOLUME 81.4 fL (80.0-100.0); MEAN PLATELET VOLUME 10.2 fL (7.4-11.0); MONOCYTES # (AUTO) 0.5 x10^3/uL (0.3-0.8); MONOCYTES % (AUTO) 12.3 % (0.0-13.0); NEUTROPHILS # (AUTO) 2.5 x10^3/uL (2.2-4.8); NEUTROPHILS % (AUTO) 57.2 % (42.0-75.0); PLATELET COUNT 227 X10^3/uL (150.0-450.0); RED BLOOD COUNT 3.41 X10^6/uL (3.5-5.4); RED CELL DISTRIBUTION WIDTH 17.1 % (11.6-16.5); WHITE BLOOD COUNT 4.3 X10^3/uL (3.6-10.0)
[2017-03-03 05:32] LABS: ALANINE AMINOTRANSFERASE 18 Units/L (12-78); ALKALINE PHOSPHATASE 128 Units/L (46-116); BLOOD UREA NITROGEN 14 mg/dL (7-18); CALCIUM 8.5 mg/dL (8.5-10.1); CARBON DIOXIDE 28.8 mmol/L (21-32); CHLORIDE 108 mmol/L (98-107); COR CA(FOR HYPOALB) 9.3 mg/dL (8.5-10.1); CREATININE 0.89 mg/dL (0.55-1.02); SODIUM 144 mmol/L (136-145); TOTAL PROTEIN 6.2 g/dL (6.4-8.2); eGFR BLACK RACES > 60 (>60); eGFR NON BLACK RACES > 60 (>60)
[2017-03-03] MEDS: CARAFATE PO SCH ×4 (05:37→20:01)
[2017-03-03] MEDS: CYTOTEC PO SCH ×3 (05:37→22:02)
[2017-03-03] MEDS: FERROUS SULFATE PO SCH ×2 (06:03→16:58)
[2017-03-03 06:33] LABS: ASPARTATE AMINO TRANSFERASE 28 Units/L (15-37)
[2017-03-03] MEDS: NEURONTIN TAB 600 MG PO SCH ×2 (08:31→20:01)
[2017-03-03] MEDS: HYDROCHLOROTHIAZIDE 25 MG TAB PO SCH (08:31)
[2017-03-03] MEDS: NORVASC TAB 5 MG PO SCH (08:31)
[2017-03-03] MEDS: PROTONIX INJ 40 MG VIAL IVP SCH ×2 (08:31→20:01)
[2017-03-03] MEDS: PROzac PO SCH (08:31)
[2017-03-03] MEDS: SINEMET (PLAIN) 25/100 MG PO SCH ×2 (08:31→22:01)
[2017-03-03] MEDS: ZESTRIL TAB 40 MG PO SCH (08:32)
[2017-03-03] MEDS: NS 1000 ML 1,000 ML IV SCH ×2 (08:32→11:20)
[2017-03-03] MEDS ORDERED: MAGNESIUM SULFATE 1 GM/100 mL PREMIX 1 GM/100 ML BAG IV ONE (14:27)
[2017-03-03] MEDS ORDERED: DIPRIVAN VIAL 20 ML ONE (14:52)
[2017-03-03] MEDS: RESTORIL CAP 30 MG PO SCH (20:01)
[2017-03-03] MEDS: KLONOPIN TAB 0.5 MG PO PRN (20:02)
[2017-03-04] MEDS: NORCO 10/325 TAB PO PRN (05:50)
[2017-03-04] MEDS: CARAFATE PO SCH (05:51)
[2017-03-04] MEDS: CYTOTEC PO SCH (05:51)
[2017-03-04] MEDS: NS 1000 ML 1,000 ML IV SCH (05:54)
[2017-03-04] MEDS: FERROUS SULFATE PO SCH (06:02)
[2017-03-04 06:12] LABS: BASOPHILS % (AUTO) 1.2 % (0.2-1.0); EOSINOPHILS # (AUTO) 0.1 x10^3/uL (0.0-0.2); EOSINOPHILS % (AUTO) 3.2 % (0.9-2.9); HEMATOCRIT 28.3 % (36.0-47.0); HEMOGLOBIN 9.2 g/dL (12.0-16.0); LYMPHOCYTES % (AUTO) 23.1 % (21.0-51.0); MEAN CORPUSCULAR HEMOGLOBIN 26.9 pg (27.0-34.0); MEAN CORPUSCULAR HGB CONC 32.6 g/dL (33.0-35.0); MEAN CORPUSCULAR VOLUME 82.7 fL (80.0-100.0); MEAN PLATELET VOLUME 10.5 fL (7.4-11.0); MONOCYTES # (AUTO) 0.5 x10^3/uL (0.3-0.8); MONOCYTES % (AUTO) 12.3 % (0.0-13.0); NEUTROPHILS # (AUTO) 2.5 x10^3/uL (2.2-4.8); NEUTROPHILS % (AUTO) 60.2 % (42.0-75.0); PLATELET COUNT 248 X10^3/uL (150.0-450.0); RED BLOOD COUNT 3.42 X10^6/uL (3.5-5.4); RED CELL DISTRIBUTION WIDTH 17.6 % (11.6-16.5); WHITE BLOOD COUNT 4.1 X10^3/uL (3.6-10.0)
[2017-03-04 06:28] LABS: ALANINE AMINOTRANSFERASE 26 Units/L (12-78); ALBUMIN 2.9 g/dL (3.4-5.0); ALKALINE PHOSPHATASE 136 Units/L (46-116); BLOOD UREA NITROGEN 15 mg/dL (7-18); CALCIUM 8.3 mg/dL (8.5-10.1); CARBON DIOXIDE 24.8 mmol/L (21-32); CHLORIDE 109 mmol/L (98-107); COR CA(FOR HYPOALB) 9.2 mg/dL (8.5-10.1); COR NA(FOR HYPERGLY) 143 mmol/L (136-145); CREATININE 1.12 mg/dL (0.55-1.02); SODIUM 142 mmol/L (136-145); TOTAL PROTEIN 5.9 g/dL (6.4-8.2); eGFR NON BLACK RACES 52 (>60)
[2017-03-04 06:44] LABS: ASPARTATE AMINO TRANSFERASE 30 Units/L (15-37)
[2017-03-04 06:51] LABS: eGFR BLACK RACES > 60 (>60)
[2017-03-04] MEDS: PROTONIX INJ 40 MG VIAL IVP SCH (09:13)
[2017-03-04] MEDS: PROzac PO SCH (09:14)
[2017-03-04] MEDS: HYDROCHLOROTHIAZIDE 25 MG TAB PO SCH (09:14)
[2017-03-04] MEDS: NORVASC TAB 5 MG PO SCH (09:14)
[2017-03-04] MEDS: ZESTRIL TAB 40 MG PO SCH (09:14)
[2017-03-04] MEDS: NEURONTIN TAB 600 MG PO SCH (09:14)
[2017-03-04] MEDS: SINEMET (PLAIN) 25/100 MG PO SCH (09:15)
[2017-03-04 10:03] VITALS: BP 125/60
== END 2017-03-04 11:50 | disposition home or self-care (01) | DRG 392 ==
LOC: MED/SURG 10:42
PROVIDERS: ADMIT Internal Medicine; ATTEND Internal Medicine
PROC: 30233N1 Transfusion of Nonautologous Red Blood Cells into Peripheral Vein, Percutaneous Approach (ICD-10-PCS; 2017-02-28)
PROC: 30233N1 Transfusion of Nonautologous Red Blood Cells into Peripheral Vein, Percutaneous Approach (ICD-10-PCS; 2017-02-28)
PROC: 3E0234Z Introduction of Serum, Toxoid and Vaccine into Muscle, Percutaneous Approach (ICD-10-PCS; 2017-02-28)
PROC: 0DB68ZX Excision of Stomach, Via Natural or Artificial Opening Endoscopic, Diagnostic (ICD-10-PCS; 2017-03-03)
PROC: 0DB38ZX Excision of Lower Esophagus, Via Natural or Artificial Opening Endoscopic, Diagnostic (ICD-10-PCS; principal; 2017-03-03 18:15)
DX: R10.84 Generalized abdominal pain (principal); K92.1 Melena; R06.02 Shortness of breath; R53.83 Other fatigue; D64.89 Other specified anemias; D50.0 Iron deficiency anemia secondary to blood loss (chronic); E86.0 Dehydration; F41.8 Other specified anxiety disorders; F32.89 Other specified depressive episodes; K21.9 Gastro-esophageal reflux disease without esophagitis; R10.13 Epigastric pain; K46.9 Unspecified abdominal hernia without obstruction or gangrene; K29.60 Other gastritis without bleeding; K44.9 Diaphragmatic hernia without obstruction or gangrene; Z23 Encounter for immunization
CPT/HCPCS: 36415; 36430; 71010; 74177; 80053; 81001; 82270; 82607; 82728; 82746; 83540; 83735; 84466; 85025; 86850; 86900; 86901; 86922; 87045; 87427; 87493; 87899; 88305; 88342; A4222; C9113; P9016; Q0169; S0191; 90670; A4217; J1940; J3490

== ENCOUNTER 2017-03-10 15:13 | Observation (INO) | payer OTHER, MEDICAID ==
[2017-03-10] MEDS ORDERED: PHENERGAN TAB 25 MG PO ONE (16:07)
[2017-03-10] MEDS ORDERED: FIORICET #3 W/CODEINE CAP ONE (16:08)
[2017-03-10] MEDS: FIORICET #3 W/CODEINE CAP PO PRN (16:12)
[2017-03-10] MEDS ORDERED: PHENERGAN TAB 25 MG PO PRN ×2 (16:14→17:43)
[2017-03-10 16:15] VITALS: BMI 31.8
[2017-03-10] MEDS ORDERED: NS 500 ML IV 500 ML IV ONE (16:57)
[2017-03-10 17:33] LABS: BASOPHILS # (AUTO) 0.1 X10^3/uL (0.0-0.1); BASOPHILS % (AUTO) 1.6 % (0.2-1.0); EOSINOPHILS # (AUTO) 0.1 x10^3/uL (0.0-0.2); EOSINOPHILS % (AUTO) 1.7 % (0.9-2.9); HEMATOCRIT 33.6 % (36.0-47.0); HEMOGLOBIN 10.7 g/dL (12.0-16.0); LYMPHOCYTES % (AUTO) 19.7 % (21.0-51.0); MEAN CORPUSCULAR HEMOGLOBIN 26.7 pg (27.0-34.0); MEAN CORPUSCULAR HGB CONC 31.7 g/dL (33.0-35.0); MEAN CORPUSCULAR VOLUME 84.1 fL (80.0-100.0); MEAN PLATELET VOLUME 10.1 fL (7.4-11.0); MONOCYTES # (AUTO) 0.5 x10^3/uL (0.3-0.8); NEUTROPHILS # (AUTO) 3.5 x10^3/uL (2.2-4.8); PLATELET COUNT 244 X10^3/uL (150.0-450.0); RED CELL DISTRIBUTION WIDTH 20.3 % (11.6-16.5); WHITE BLOOD COUNT 5.1 X10^3/uL (3.6-10.0)
[2017-03-10 17:40] LABS: ALANINE AMINOTRANSFERASE 107 Units/L (12-78); ALBUMIN 3.3 g/dL (3.4-5.0); ALKALINE PHOSPHATASE 162 Units/L (46-116); ASPARTATE AMINO TRANSFERASE 53 Units/L (15-37); BLOOD UREA NITROGEN 23 mg/dL (7-18); CARBON DIOXIDE 28.2 mmol/L (21-32); CHLORIDE 104 mmol/L (98-107); COR CA(FOR HYPOALB) 9.6 mg/dL (8.5-10.1); CREATININE 1.03 mg/dL (0.55-1.02); SODIUM 138 mmol/L (136-145); TOTAL PROTEIN 6.9 g/dL (6.4-8.2); eGFR BLACK RACES > 60 (>60); eGFR NON BLACK RACES 57 (>60)
--- NOTE | 2017-03-10 17:41 | DR.H&P ---
H&P - History & Physical for Day of: H&P Date: 03/10/17 - Chief Complaint Chief Complaint: weakness, sob, hernandez - Allergies Allergies/Adverse Reactions: Allergies Allergy/AdvReac Type Severity Reaction Status Date / Time No Known Drug Allergies Allergy Verified 12/04/16 19:31 - History of Present Illness History of Present Illness: patient is a 66-year-old white female who presents to the office today for hospital follow-up patient was noted to have generalized pallor, severe weakness dictating on exertion and dizziness with exertion. Patient was discharged 1 week ago after being treated for upper GI bleed she was status post transfusion and EGD. Patient states she felt better at time of discharge but has significantly declined over the last few days. Patient feels like hemoglobin is low. Plans admit for further evaluation, CBC CMP on admission, anemia panel, discussed possible transfusion packed red blood cells. EKG and chest x-ray on admission. - Past Medical History Past Medical History: Anemia, Anxiety, Depression, GERD, Hypertension, Kidney Stones, PUD Additional Medical History: GI Bleed - Past Surgical History Surgical History: Cholecystectomy, Hysterectomy, Ortho Surgery, Other Additional Surgical History: Lumpectomy from breasts, spurs removed from heels. - Family History Family Medical History: Cancer, Hypertension - Social History Does patient currently use any type of tobacco product: No Have you used tobacco products in the last 12 months: No Type of Tobacco Use: None Does any household member use tobacco: No Alcohol Use: None Drug Use: None - Review of Systems Constitutional: Weakness ENT: No Symptoms Reported Respiratory: Shortness of Breath Gastrointestinal: Nausea Genitourinary: No Symptoms Reported Musculoskeletal: No Symptoms Reported Skin: Other (pale) Neurological: Weakness - Physical Exam Vital Signs: Blood Pressure [Right Arm] 125/60 Blood Pressure [Right Radial 147/79 Artery] Blood Pressure [Left Arm] 123/57 Blood Pressure [Standing] 128/59 Blood Pressure [Lying] 141/71 Blood Pressure 125/60 Oriented: Normal Eyes: Normal Ear: Normal Nose: Normal Throat: Normal Respiratory: RLL Diminished, LLL Diminished Cardiovascular: Normal : Normal Auscultation: Bowel Sounds: Normal Palpation: Normal Tenderness: Epigastric Skin: Normal Musculoskeletal: Normal Psychiatric: Normal Mood Description: Calm Speech Pattern: Clear - Assessment/Plan (1) Generalized weakness Status: Acute Plan: admit, r/o symptomatic anemia. cbc cmp anemia panel, possible transfusion pending labs. ekg, cxr on admission. ppi therapy, data processing manager (2) Anemia Qualifiers: Anemia type: iron deficiency Iron deficiency anemia type: chronic blood loss Qualified Code(s): D50.0 - Iron deficiency anemia secondary to blood loss (chronic) Status: Acute (3) Depression Status: Chronic (4) GERD (gastroesophageal reflux disease) Qualifiers: Esophagitis presence: esophagitis presence not specified Qualified Code(s) : K21.9 - Gastro-esophageal reflux disease without esophagitis Status: Chronic (5) Hypertension Status: Chronic (6) PUD (peptic ulcer disease) Status: Chronic
[2017-03-10 17:42] LABS: ANISOCYTOSIS 1+; HYPOCHROMASIA SLIGHT; PLATELET MORPHOLOGY COMMENT NORMAL (NORMAL)
[2017-03-10] MEDS ORDERED: KLONOPIN TAB 0.5 MG PO PRN (17:43)
[2017-03-10 18:07] LABS: IRON 112 ug/dL (50-175); TRANSFERRIN 199 mg/dL (202-364)
[2017-03-10] MEDS: CYTOTEC PO SCH (19:41)
[2017-03-10] MEDS: NS 1000 ML 1,000 ML IV SCH (19:42)
[2017-03-10] MEDS ORDERED: FIORICET TAB PO PRN (20:13)
[2017-03-10] MEDS ORDERED: NEURONTIN TAB 600 MG PO SCH (21:00)
[2017-03-10] MEDS ORDERED: RESTORIL CAP 30 MG PO SCH (21:00)
[2017-03-11 06:18] LABS: ALANINE AMINOTRANSFERASE 85 Units/L (12-78); ALBUMIN 2.9 g/dL (3.4-5.0); ALKALINE PHOSPHATASE 149 Units/L (46-116); ASPARTATE AMINO TRANSFERASE 38 Units/L (15-37); BLOOD UREA NITROGEN 23 mg/dL (7-18); CALCIUM 8.6 mg/dL (8.5-10.1); CARBON DIOXIDE 29.1 mmol/L (21-32); CHLORIDE 109 mmol/L (98-107); COR CA(FOR HYPOALB) 9.5 mg/dL (8.5-10.1); CREATININE 1.02 mg/dL (0.55-1.02); SODIUM 143 mmol/L (136-145); TOTAL PROTEIN 6.3 g/dL (6.4-8.2); eGFR BLACK RACES > 60 (>60); eGFR NON BLACK RACES 57 (>60)
[2017-03-11] MEDS: CYTOTEC PO SCH ×2 (06:18→12:29)
[2017-03-11 06:20] LABS: BASOPHILS % (AUTO) 1.1 % (0.2-1.0); EOSINOPHILS # (AUTO) 0.1 x10^3/uL (0.0-0.2); EOSINOPHILS % (AUTO) 2.9 % (0.9-2.9); HEMATOCRIT 31.9 % (36.0-47.0); HEMOGLOBIN 10.3 g/dL (12.0-16.0); LYMPHOCYTES # (AUTO) 0.9 X10^3/uL (1.3-2.9); LYMPHOCYTES % (AUTO) 26.8 % (21.0-51.0); MEAN CORPUSCULAR HEMOGLOBIN 27.1 pg (27.0-34.0); MEAN CORPUSCULAR HGB CONC 32.2 g/dL (33.0-35.0); MEAN CORPUSCULAR VOLUME 84.2 fL (80.0-100.0); MEAN PLATELET VOLUME 10.3 fL (7.4-11.0); MONOCYTES # (AUTO) 0.4 x10^3/uL (0.3-0.8); MONOCYTES % (AUTO) 12.2 % (0.0-13.0); PLATELET COUNT 233 X10^3/uL (150.0-450.0); RED BLOOD COUNT 3.79 X10^6/uL (3.5-5.4); RED CELL DISTRIBUTION WIDTH 21.1 % (11.6-16.5); WHITE BLOOD COUNT 3.4 X10^3/uL (3.6-10.0)
[2017-03-11 06:55] LABS: ANISOCYTOSIS SLIGHT; PLATELET MORPHOLOGY COMMENT NORMAL (NORMAL)
[2017-03-11 07:29] LABS: BILIRUBIN,URINE NEGATIVE (NEGATIVE); BLOOD/HEMOGLOBIN,URINE NEGATIVE (NEGATIVE); GLUCOSE, URINE NEGATIVE (NEGATIVE); KETONES,URINE NEGATIVE (NEGATIVE); LEUKOCYTE ESTERASE ,URINE 3+ (NEGATIVE); NITRITES,URINE NEGATIVE (NEGATIVE); PROTEIN,URINE NEGATIVE (NEGATIVE); UROBILINOGEN,URINE NORMAL (NORMAL)
[2017-03-11 07:43] LABS: APPEARANCE,URINE SLIGHTLY HAZY (CLEAR); COLOR,URINE YELLOW (YELLOW)
[2017-03-11 07:44] LABS: BACTERIA,URINE TRACE /HPF (NEGATIVE); RBC,URINE 0-3 /HPF (NEGATIVE); SQUAMOUS EPITHELIAL CELL,UR FEW /HPF (NEGATIVE)
[2017-03-11] MEDS ORDERED: PEPCID 20 MG IV PREMIX* 20 MG/50 ML BAG IV ONE (08:07)
[2017-03-11] MEDS ORDERED: PROTONIX TAB 40 MG PO SCH (09:00)
[2017-03-11] MEDS ORDERED: ZESTRIL TAB 40 MG PO SCH (09:00)
[2017-03-11] MEDS ORDERED: HYDROCHLOROTHIAZIDE 25 MG TAB PO SCH (09:00)
[2017-03-11] MEDS ORDERED: PROzac PO SCH (09:00)
[2017-03-11] MEDS ORDERED: NORVASC TAB 5 MG PO SCH (09:00)
[2017-03-11] MEDS: LYRICA CAP 150 MG PO SCH ×2 (09:17)
[2017-03-11] MEDS: FIORICET #3 W/CODEINE CAP PO PRN (09:17)
[2017-03-11] MEDS: NS 1000 ML 1,000 ML IV SCH (12:32)
[2017-03-11 12:34] VITALS: BP 115/57
== END 2017-03-11 14:10 | disposition home or self-care (01) ==
LOC: ICU 15:13
PROVIDERS: ADMIT Internal Medicine; ATTEND Internal Medicine
DX: D64.89 Other specified anemias (principal); R53.1 Weakness; R06.02 Shortness of breath; F41.8 Other specified anxiety disorders; K21.9 Gastro-esophageal reflux disease without esophagitis; F32.89 Other specified depressive episodes; D50.0 Iron deficiency anemia secondary to blood loss (chronic); K27.7 Chronic peptic ulcer, site unspecified, without hemorrhage or perforation
CPT/HCPCS: 36415; 71010; 80053; 81001; 82607; 82728; 82746; 83540; 84466; 85025; 86850; 86900; 86901; 86922; 87086; 93005; 93010; A4222; Q0169; S0028; S0191; G0378

== ENCOUNTER → 2017-10-17 | Outpatient (CLI) | payer OTHER, MEDICAID ==
--- NOTE | 2017-10-17 17:27 | RAD ---
HISTORY: Back pain with no known trauma Study: Three views of the thoracic spine Comparison: None Findings: Images demonstrate 12 rib-bearing thoracic vertebral bodies. A chronic compression deformity of the T 12 vertebral body is noted and was also demonstrated on previous CT of the abdomen and pelvis perform ed on February 28, 2017. Otherwise the remaining thoracic vertebral body heights are relatively main tained. Degenerate facet changes are seen throughout the thoracic spine. Multilevel intervertebral di sc space narrowing and osteophytosis are also noted. The aorta is partially calcified and tortuous. S urgical clips project over the right upper quadrant the abdomen. If symptoms or clinical concern pers ist correlation with MRI may be helpful. IMPRESSION: 1. Chronic compression deformity of the T12 vertebral body with multilevel degenerative changes as n oted above. Reported By:
== END ==
LOC: RAD 16:10
PROVIDERS: ATTEND Internal Medicine
DX: M54.6 Pain in thoracic spine (principal)
CPT/HCPCS: 72072

== ENCOUNTER 2019-02-07 15:08 | Observation (INO) ==
--- NOTE | 2019-02-07 15:46 | RAD ---
History: Mid sternal chest pain for 3 days Study: PA and lateral chest Comparison: March 10, 2017 Findings: The lungs are clear and the heart and mediastinum are unremarkable. There is no edema or effusion. There are moderate degenerative osteophytes in the lower thoracic spine. There is mild compression of the superior endplate of T12. Impression: No evidence for acute cardiopulmonary disease Reported By:
[2019-02-07 15:56] LABS: BASOPHILS # (AUTO) 0.1 X10^3/uL (0.0-0.1); BASOPHILS % (AUTO) 0.8 % (0.2-1.0); EOSINOPHILS # (AUTO) 0.1 x10^3/uL (0.0-0.2); HEMATOCRIT 40.8 % (36.0-47.0); HEMOGLOBIN 13.6 g/dL (12.0-16.0); LYMPHOCYTES % (AUTO) 17.4 % (21.0-51.0); MEAN CORPUSCULAR HGB CONC 33.5 g/dL (33.0-35.0); MEAN CORPUSCULAR VOLUME 98.6 fL (80.0-100.0); MONOCYTES # (AUTO) 0.5 x10^3/uL (0.3-0.8); MONOCYTES % (AUTO) 7.8 % (0.0-13.0); NEUTROPHILS # (AUTO) 4.4 x10^3/uL (2.2-4.8); PLATELET COUNT 242 X10^3/uL (150.0-450.0); RED BLOOD COUNT 4.13 X10^6/uL (3.5-5.4); RED CELL DISTRIBUTION WIDTH 13.1 % (11.6-16.5)
[2019-02-07] MEDS ORDERED: PEPCID 20 MG IV PREMIX* 20 MG/50 ML BAG IV SCH (16:00)
[2019-02-07 16:16] LABS: ALANINE AMINOTRANSFERASE 22 Units/L (12-78); ALBUMIN 4.2 g/dL (3.4-5.0); ALKALINE PHOSPHATASE 113 Units/L (46-116); ASPARTATE AMINO TRANSFERASE 18 Units/L (15-37); BLOOD UREA NITROGEN 23 mg/dL (7-18); CALCIUM 9.2 mg/dL (8.5-10.1); CARBON DIOXIDE 22.8 mmol/L (21-32); CHLORIDE 102 mmol/L (98-107); CKMB % 1.6 % (<4); COR NA(FOR HYPERGLY) 138 mmol/L (136-145); CREATINE KINASE 63 Units/L (26-192); CREATINE KINASE MB < 1.0 ng/mL (0-4.0); CREATININE 1.51 mg/dL (0.55-1.02); SODIUM 138 mmol/L (136-145); TOTAL PROTEIN 7.7 g/dL (6.4-8.2); TROPONIN I < 0.02 ng/mL (0-1.5); eGFR NON BLACK RACES 36 (>60)
[2019-02-07] MEDS ORDERED: TYLENOL 325 MG TAB PO ONE (16:17)
[2019-02-07] MEDS ORDERED: K-DUR TAB 20 MEQ PO SCH (17:00)
--- NOTE | 2019-02-07 17:06 | DR.H&P ---
H&P - History & Physical for Day of: H&P Date: 02/07/19 - Chief Complaint Chief Complaint: chest pain, n/v - History of Present Illness History of Present Illness: 68 WF DIRECT ADMIT FROM DR OVALLE OFFICE WITH CO CHEST PAIN WITH N/V AND WEAKNESS AND SOB WITH EPISODES. PT DENIES ANY HX OF CAD. PT DOES HAVE HX OF GASTRIC ULCERS, CURRENTLY ON PPI THERAPY. PT HAS BEEN CO OF INCREASED GERD SYMPTOMS, WAVES OF NAUSEA WITH TIGHTNESS IN CHEST. PT STARTED ON CARAFATE AND REFERRED FOR EGD, WITH APPOINTMENT PENDING. PT HAS PMH OF HTN, GERD, OA, TAN, ANEMIA. PT ADMITTED TO [facility] FOR SERIAL CE AND EKG - Past Medical History Past Medical History: Anemia, Anxiety, Depression, GERD, Hypertension, Kidney Stones, PUD Additional Medical History: GI Bleed - Past Surgical History Surgical History: Cholecystectomy, Hysterectomy, Ortho Surgery, Other Additional Surgical History: Lumpectomy from breasts, spurs removed from heels. - Family History Family Medical History: Cancer, Hypertension - Medications Home Medications: No Known Drug Allergies Allergy (Verified 12/04/16 19:31) - Review of Systems Constitutional: Weakness Eyes: No Symptoms Reported ENT: No Symptoms Reported Respiratory: No Symptoms Reported Cardiovascular: Chest Pain. denies: Edema Gastrointestinal: Nausea, Vomiting Genitourinary: No Symptoms Reported Musculoskeletal: Back Pain, Leg Pain Skin: No Symptoms Reported Neurological: Weakness - Physical Exam Vital Signs: Blood Pressure [Right Arm] 125/60 Blood Pressure [Right Radial 147/79 Artery] Blood Pressure [Left Arm] 115/57 Blood Pressure [Standing] 128/59 Blood Pressure [Lying] 141/71 Blood Pressure 115/57 Oriented: Normal Eyes: Normal Ear: Normal Nose: Normal Throat: Normal Respiratory: Clear Throughout Cardiovascular: Tachycardia (RATE 110) : Normal Auscultation: Bowel Sounds: Normal Tenderness: Epigastric Skin: Normal Musculoskeletal: Back:Lumbar Psychiatric: Anxiety Affect: Anxious Speech Pattern: Clear, Appropriate - Assessment/Plan (1) Chest pain Status: Acute Plan: ADMIT, SERIAL CE AND EKG. CXR ON ADMISSION, PPI THERAPY, CARAFATE. BP CONTROL, AM FLP, OCCULT STOOL. VERIFY HOME MEDICATION, NPO AFTER MIDNIGHT. GI CONSULT, GENTLE IV HYDRATION (2) History of anemia Status: Chronic (3) GERD (gastroesophageal reflux disease) Qualifiers: Esophagitis presence: esophagitis presence not specified Qualified Code(s): K21.9 - Gastro-esophageal reflux disease without esophagitis Status: Chronic (4) Hypertension Status: Chronic (5) PUD (peptic ulcer disease) Status: Chronic (6) Generalized weakness Status: Acute - Allergies Allergies/Adverse Reactions: Allergies Allergy/AdvReac Type Severity Reaction Status Date / Time No Known Drug Allergies Allergy Verified 12/04/16 19:31
[2019-02-07] MEDS: NS 1000 ML 1,000 ML IV SCH (17:59)
[2019-02-07] MEDS: NORCO 5/325 MG TAB PO PRN (18:53)
[2019-02-07 19:14] VITALS: BMI 28.3
[2019-02-07] MEDS: CARAFATE PO SCH (20:49)
[2019-02-07] MEDS: KLONOPIN TAB 0.5 MG PO PRN (20:50)
[2019-02-07] MEDS ORDERED: POTASSIUM CHL 40 MEQ/NS 0.45% 500 ML IV PRN (20:55)
[2019-02-07] MEDS ORDERED: MICRO K EXTEN CAP 10 MEQ PO PRN (20:55)
[2019-02-07] MEDS ORDERED: POTASSIUM CHL 60 MEQ/NS 0.45% 500 ML IV PRN (20:55)
[2019-02-07] MEDS ORDERED: K-RIDER 10 MEQ/NS 100 ML 10 MEQ/100 ML BAG IV PRN (20:55)
[2019-02-07] MEDS ORDERED: POTASSIUM CHLORIDE LIQ 20 MEQ UDC PO PRN (20:55)
[2019-02-07] MEDS ORDERED: KLOR-CON PO PRN (20:55)
[2019-02-07] MEDS ORDERED: LYRICA CAP 150 mg PO SCH (21:00)
[2019-02-07] MEDS: REQUIP PO SCH (21:05)
[2019-02-07] MEDS: K-DUR TAB 20 MEQ PO PRN (21:10)
[2019-02-07 21:17] LABS: CKMB % 1.8 % (<4); CREATINE KINASE 55 Units/L (26-192); CREATINE KINASE MB < 1.0 ng/mL (0-4.0); TROPONIN I < 0.02 ng/mL (0-1.5)
[2019-02-07] MEDS: AMBIEN PO PRN (21:24)
[2019-02-08 03:50] LABS: CHOL/HDL RATIO 2.9 (0.0-5.0); CHOLESTEROL 131 mg/dL (0-200); CKMB % 2.2 % (<4); CREATINE KINASE 45 Units/L (26-192); CREATINE KINASE MB < 1.0 ng/mL (0-4.0); HDL CHOLESTEROL 45 mg/dL (40-60); TRIGLYCERIDES 74 mg/dL (0-150); TROPONIN I < 0.02 ng/mL (0-1.5)
[2019-02-08] MEDS: CARAFATE PO SCH ×4 (05:30→20:03)
[2019-02-08] MEDS: NS 1000 ML 1,000 ML IV SCH ×2 (05:30→20:06)
[2019-02-08] MEDS ORDERED: PEPCID 20 MG IV PREMIX* 20 MG/50 ML BAG IV SCH (09:00)
[2019-02-08] MEDS: NORVASC TAB 5 MG PO SCH (09:34)
[2019-02-08] MEDS: REQUIP PO SCH ×2 (09:50→20:03)
[2019-02-08] MEDS ORDERED: STERILE WATER IRRIGATION ONE (10:07)
[2019-02-08] MEDS ORDERED: DIPRIVAN VIAL 20 ML ONE (12:53)
[2019-02-08] MEDS: K-DUR TAB 20 MEQ PO PRN (14:47)
[2019-02-08] MEDS ORDERED: DIPRIVAN VIAL ONE (15:26)
--- NOTE | 2019-02-08 18:57 | PCM.PROG ---
Progress Note - Progress Note for Day of Date of Exam: 02/08/19 - Subjective Subjective: pt is 68 WF direct admit from our [place] office with co upper abdominal pains and atypical chest pains. Pt has serial CE and EKGs on admission within normal limits. The patient states that she has been having significant atypical chest pain for the past week. She has been having epigastric abdominal pains off and on for a while. She does have a history of recurrent peptic ulcer disease with GI bleeding on a recurrent basis in the past. Lately, she has been taking Nexium, 40 mg daily. The patient states that she does have some nausea and vomiting but denies seeing any blood in the vomitus. She has a history of gastroesophageal reflux disease. She complains of significant dysphagia to solid meals. She denies using any nonsteroidal anti-inflammatory drugs lately. She has been having regular bowel movements and denies any melena or hematochezia lately. The patient is well known to me from previous evaluations. She has recurrent episodes of bleeding in the past which required packed red blood cells transfusions at times. On admission this time, however, her hemoglobin was found to be normal. Pt is NPO this for Dr. Harman consultation and EGD. - Past Medical Family Social History Past Med/Fam/Surg Hx: No changes since H&P Allergies: Allergies No Known Drug Allergies Allergy (Verified 12/04/16 19:31) - Review of Systems ROS: No change since H&P - Vital Signs and I&O's Vital Signs: Temperature 97.6 F Pulse Rate [Left Brachial] 70 Pulse Rate [Right] 66 Respiratory Rate 20 Blood Pressure [Right Arm] 116/56 Blood Pressure [Right Radial 147/79 Artery] Blood Pressure [Left Arm] 120/75 Blood Pressure [Standing] 128/59 Blood Pressure [Lying] 141/71 Blood Pressure 115/57 O2 Sat by Pulse Oximetry 98 Intake and Output: Intake & Output 02/06/19 02/07/19 02/08/19 02/09/19 11:59 11:59 11:59 11:59 Intake Total 850 / 850 1889 Balance 850 / 850 1889 - Physical Exam Oriented: Normal Eyes: Normal Ear: Normal Nose: Normal Throat: Normal Respiratory: Normal Cardiovascular: Tachycardia (RATE 110) : Normal Auscultation: Bowel Sounds: Normal Tenderness: Epigastric Skin: Normal Musculoskeletal: Back:Lumbar Psychiatric: Anxiety Affect: Anxious Speech Pattern: Clear, Appropriate - Laboratory and Diagnostics Result Diagrams: 02/07/19 15:48 02/07/19 15:48 Labs: Laboratory WBC 6.0 X10^3/uL (3.6-10.0) 02/07/19 15:48 RBC 4.13 X10^6/uL (3.5-5.4) 02/07/19 15:48 Hgb 13.6 g/dL (12.0-16.0) 02/07/19 15:48 Hct 40.8 % (36.0-47.0) 02/07/19 15:48 MCV 98.6 fL (80.0-100.0) 02/07/19 15:48 MCH 33.0 pg (27.0-34.0) 02/07/19 15:48 MCHC 33.5 g/dL (33.0-35.0) 02/07/19 15:48 RDW 13.1 % (11.6-16.5) 02/07/19 15:48 Plt Count 242 X10^3/uL (150.0-450.0) 02/07/19 15:48 MPV 9.0 fL (7.4-11.0) 02/07/19 15:48 Neut % (Auto) 73.0 % (42.0-75.0) 02/07/19 15:48 Lymph % (Auto) 17.4 % (21.0-51.0) L 02/07/19 15:48 [place] % (Auto) 7.8 % (0.0-13.0) 02/07/19 15:48 Eos % (Auto) 1.0 % (0.9-2.9) 02/07/19 15:48 Baso % (Auto) 0.8 % (0.2-1.0) 02/07/19 15:48 Neut # (Auto) 4.4 x10^3/uL (2.2-4.8) 02/07/19 15:48 Lymph # (Auto) 1.0 X10^3/uL (1.3-2.9) L 02/07/19 15:48 [place] # (Auto) 0.5 x10^3/uL (0.3-0.8) 02/07/19 15:48 Eos # (Auto) 0.1 x10^3/uL (0.0-0.2) 02/07/19 15:48 Baso # (Auto) 0.1 X10^3/uL (0.0-0.1) 02/07/19 15:48 Absolute Nucleated RBC 0.0 /100WBC 02/07/19 15:48 Sodium 138 mmol/L (136-145) 02/07/19 15:48 Corrected Sodium 138 mmol/L (136-145) 02/07/19 15:48 Potassium 3.4 mmol/L (3.5-5.1) L 02/07/19 15:48 Chloride 102 mmol/L (98-107) 02/07/19 15:48 Carbon Dioxide 22.8 mmol/L (21-32) 02/07/19 15:48 BUN 23 mg/dL (7-18) H 02/07/19 15:48 Creatinine 1.51 mg/dL (0.55-1.02) H 02/07/19 15:48 Est GFR (MDRD) Af Amer 44 (>60) L 02/07/19 15:48 Est GFR (MDRD) Non-Af 36 (>60) L 02/07/19 15:48 Glucose 112 mg/dL (65-99) H 02/07/19 15:48 Calcium 9.2 mg/dL (8.5-10.1) 02/07/19 15:48 Corrected Calcium TNP 02/07/19 15:48 Magnesium 1.9 mg/dL (1.7-2.9) 02/07/19 15:48 Total Bilirubin 0.30 mg/dL (0.2-1.0) 02/07/19 15:48 AST 18 Units/L (15-37) 02/07/19 15:48 ALT 22 Units/L (12-78) 02/07/19 15:48 Alkaline Phosphatase 113 Units/L (46-116) 02/07/19 15:48 Creatine Kinase 45 Units/L (26-192) 02/08/19 03:13 CK-MB (CK-2) < 1.0 ng/mL (0-4.0) 02/08/19 03:13 CK/CKMB % Calc 2.2 % (<4) 02/08/19 03:13 Troponin I < 0.02 ng/mL (0-1.5) 02/08/19 03:13 Total Protein 7.7 g/dL (6.4-8.2) 02/07/19 15:48 Albumin 4.2 g/dL (3.4-5.0) 02/07/19 15:48 Globulin 3.5 g/dL (2.5-4.5) 02/07/19 15:48 Albumin/Globulin Ratio 1.2 Ratio (1.1-2.1) 02/07/19 15:48 Triglycerides 74 mg/dL (0-150) 02/08/19 03:13 Cholesterol 131 mg/dL (0-200) 02/08/19 03:13 LDL Cholesterol, Calc 71 mg/dL (0-100) 02/08/19 03:13 HDL Cholesterol 45 mg/dL (40-60) 02/08/19 03:13 Cholesterol/HDL Ratio 2.9 (0.0-5.0) 02/08/19 03:13 Tissue Pathology To follow 02/08/19 13:03 - Plan (1) Chest pain Status: Acute Plan: SERIAL CE AND EKG. CXR ON ADMISSION, PPI THERAPY, CARAFATE. BP CONTROL, AM FLP, OCCULT STOOL. VERIFY HOME MEDICATION, NPO AFTER MIDNIGHT. GI CONSULT, GENTLE IV HYDRATION (2) History of anemia Status: Chronic (3) GERD (gastroesophageal reflux disease) Status: Chronic Qualifiers: Esophagitis presence: esophagitis presence not specified Qualified Code(s): K21.9 - Gastro-esophageal reflux disease without esophagitis (4) Hypertension Status: Chronic (5) PUD (peptic ulcer disease) Status: Chronic (6) Generalized weakness Status: Acute
[2019-02-08] MEDS: AMBIEN PO PRN (20:03)
[2019-02-08] MEDS: PriLOSEC PO SCH (20:03)
[2019-02-08] MEDS: KLONOPIN TAB 0.5 MG PO PRN (20:03)
[2019-02-09] MEDS: NORCO 5/325 MG TAB PO PRN (02:20)
[2019-02-09 05:26] LABS: BASOPHILS % (AUTO) 0.7 % (0.2-1.0); EOSINOPHILS # (AUTO) 0.1 x10^3/uL (0.0-0.2); EOSINOPHILS % (AUTO) 1.9 % (0.9-2.9); HEMATOCRIT 33.4 % (36.0-47.0); LYMPHOCYTES # (AUTO) 0.8 X10^3/uL (1.3-2.9); LYMPHOCYTES % (AUTO) 16.2 % (21.0-51.0); MEAN CORPUSCULAR HEMOGLOBIN 33.6 pg (27.0-34.0); MEAN CORPUSCULAR HGB CONC 34.2 g/dL (33.0-35.0); MEAN CORPUSCULAR VOLUME 98.3 fL (80.0-100.0); MONOCYTES # (AUTO) 0.5 x10^3/uL (0.3-0.8); NEUTROPHILS # (AUTO) 3.7 x10^3/uL (2.2-4.8); NEUTROPHILS % (AUTO) 71.2 % (42.0-75.0); PLATELET COUNT 160 X10^3/uL (150.0-450.0); RED BLOOD COUNT 3.39 X10^6/uL (3.5-5.4); RED CELL DISTRIBUTION WIDTH 12.5 % (11.6-16.5); WHITE BLOOD COUNT 5.2 X10^3/uL (3.6-10.0)
[2019-02-09 05:29] LABS: HEMOGLOBIN 11.4 g/dL (12.0-16.0)
[2019-02-09] MEDS: CARAFATE PO SCH ×2 (05:35→11:24)
[2019-02-09 05:40] LABS: ALANINE AMINOTRANSFERASE 15 Units/L (12-78); ALBUMIN 2.7 g/dL (3.4-5.0); ALKALINE PHOSPHATASE 87 Units/L (46-116); ASPARTATE AMINO TRANSFERASE 14 Units/L (15-37); BLOOD UREA NITROGEN 22 mg/dL (7-18); CARBON DIOXIDE 22.2 mmol/L (21-32); CHLORIDE 110 mmol/L (98-107); CREATININE 1.16 mg/dL (0.55-1.02); SODIUM 141 mmol/L (136-145); TOTAL PROTEIN 5.4 g/dL (6.4-8.2); eGFR NON BLACK RACES 49 (>60)
[2019-02-09] MEDS ORDERED: LEVSIN/MAALOX/LIDOC VISC PO PRN (09:10)
[2019-02-09] MEDS ORDERED: LEVSIN/MAALOX/LIDOC VISC ONE (09:14)
[2019-02-09] MEDS: NS 1000 ML 1,000 ML IV SCH (09:27)
[2019-02-09] MEDS: REQUIP PO SCH (09:28)
[2019-02-09] MEDS: NORVASC TAB 5 MG PO SCH (09:28)
[2019-02-09] MEDS: PriLOSEC PO SCH (09:29)
[2019-02-09 10:07] LABS: CKMB % 2.1 % (<4); CREATINE KINASE 53 Units/L (26-192); CREATINE KINASE MB 1.1 ng/mL (0-4.0); TROPONIN I < 0.02 ng/mL (0-1.5)
[2019-02-09 12:20] VITALS: BP 101/53
== END 2019-02-09 15:07 | disposition short-term general hospital (02) ==
LOC: OBS → MED/SURG 02-08 16:13
PROVIDERS: ADMIT Internal Medicine; ATTEND Internal Medicine
DX: I10 Essential (primary) hypertension; R13.11 Dysphagia, oral phase; K21.9 Gastro-esophageal reflux disease without esophagitis; K29.60 Other gastritis without bleeding; K44.9 Diaphragmatic hernia without obstruction or gangrene; R06.02 Shortness of breath; K27.7 Chronic peptic ulcer, site unspecified, without hemorrhage or perforation; E78.2 Mixed hyperlipidemia; K22.2 Esophageal obstruction; K20.9 Esophagitis, unspecified; M19.90 Unspecified osteoarthritis, unspecified site; F41.8 Other specified anxiety disorders; R07.89 Other chest pain; R10.13 Epigastric pain
CPT/HCPCS: 36415; 71020; 71046; 80053; 80061; 82550; 82553; 83735; 84484; 85025; 88305; 88342; 93005; 96367; 96374; A4217; A4222; S0028; G0378; J2704; J7030